=== PATIENT | male | born 1975 | race Caucasian/White ===

== ENCOUNTER 2018-01-12 17:01 | Inpatient (IN) ==
--- NOTE | 2018-01-12 17:27 | ED ---
HPI General Chief complaint: Psychiatric Symptoms Stated complaint: AMS Time Seen by Provider: 01/12/18 17:11 History of Present Illness HPI narrative: Patient comes to the emergency department by EMS after being found altered outside of a [facility]. Patient reportedly lives at [facility] and has a history of schizophrenia with multiple personality disorder. Patient is continuously giggling. Patient states that his he is here because his doctor would not help him and he needs 17 different medications for his multiple personality disorder. Patient denies any chest pain, shortness of breath, abdominal pain, or headaches. Patient reports only drugs he does that are not prescribed is whatever is in cigarettes. Patient is rambling going from one subject to another and constantly giggling. Patient appears poor historian thus limiting H&P. Related Data Home Medications Medication Instructions Recorded Confirmed Unable to Obtain Home Meds 01/12/18 01/12/18 Allergies Allergy/AdvReac Type Severity Reaction Status Date / Time clozapine Allergy Severe Irritation Verified 01/12/18 18:33 ziprasidone Allergy Severe Rash Verified 01/12/18 18:33 *MDRO Multi-Drug Resistant AdvReac Unknown Anxiety Uncoded 01/12/18 18:33 Organism Review of Systems ROS: all other systems reviewed are negative [facility] Medical History Medical History Acute exacerbation of chronic schizophrenia (Acute) Social History Social History Smoking Status: Unknown if ever smoked How Often Do You Have a Drink Containing Alcohol: Unable to Obtain Recent Travel in [facility] within the Last 8 Weeks: No Recent Out of Country Travel within the Last 8 Weeks: No Immunization History Tetanus Immunization: Unable to Assess Exam Narrative Exam Narrative: GENERAL: Well-developed, overly nourished, in no acute distress , and non-ill appearing. SKIN: Focused skin assessment warm and dry. HEAD: Atraumatic. Normocephalic. EYES: Pupils equal and round. EOMI. No scleral icterus. No injection or drainage. ENT: No nasal bleeding or discharge. Mucous membranes pink and moist. NECK: Trachea midline. Supple. No nuclear rigidity. CARDIOVASCULAR: Regular rate and rhythm. No murmur appreciated. RESPIRATORY: No accessory muscle use. No respiratory distress. Clear to auscultation. Breath sounds equal bilaterally. GASTROINTESTINAL: Abdomen soft, non-tender, nondistended, and no guarding. Hepatic and splenic margins not palpable. Normal bowel sounds x4. No pulsatile mass. MUSCULOSKELETAL: No obvious deformities. No clubbing. No cyanosis. No edema. Full range of motion. NEUROLOGICAL: Awake and alert. No obvious cranial nerve deficits. Motor grossly within normal limits. Normal speech. PSYCHIATRIC: Constant giggling and rambling speech. Course Initial Documented Vital Signs Temperature 97.3 F L 01/12/18 17:10 Pulse Rate 102 H 01/12/18 17:10 Respiratory Rate 22 01/12/18 17:10 Blood Pressure 155/67 H 01/12/18 17:10 Last Documented Vital Signs Temperature 97.3 F L 01/12/18 17:10 Pulse Rate 102 H 01/12/18 17:10 Respiratory Rate 01/12/18 17:10 Blood Pressure 155/67 H 01/12/18 17:10 Sign Out Sign Out Data: Patient Sign Out occurred on 01/12/18 at 19:34. Patient's care was discussed, and care was transferred from ALLEN Romeo to ALLEN Helm. Sign Out Comment: Patient was signed out to Chance Chiang PA-C pending results. Please see his to documentation final diagnosis and disposition. Last updated by Anibal Romano PA at 01/12/18 18:59 Post-Handoff Eval: 2000: See previous providers notes for complete history of present illness. Patient's lab work and imaging studies have been reviewed. His ammonia is elevated. His troponin is elevated at 0.16. He denies any chest pain, shortness of breath however he is a poor historian. His urine is positive for nitrites, he will be given a dose of Rocephin. At this point in time the plan would be to admit him to hospitalist service, likely for psychiatric consultation as well for what is likely psychosis related to his psychiatric illnesses. Medical Decision Making MDM Narrative Medical decision making narrative: Patient seen and examined. Initial laboratory radiological studies were ordered. Patient was signed out to Chance Chiang PA-C pending results. Please see his to documentation final diagnosis and disposition. Medical Screen Exam Complete: Yes Emergency Medical Condition: Yes Differential Diagnosis Differential Diagnosis: CVA, TIA, intracranial hemorrhage, UTI, substance abuse , mood disorder, metabolic disturbance, dehydration, pneumonia Lab Data Result diagrams: 01/12/18 17:45 01/12/18 17:45 Lab Results 01/12/18 01/12/18 01/12/18 Range/Units 17:45 17:45 17:45 Sodium 138 (136-145) meq/L Potassium 4.0 (3.5-5.1) meq/L Chloride 107 (98-107) meq/L Carbon Dioxide 22.2 (21.0-32.0) meq/L Anion Gap 9 (5-15) meq/L BUN 14 (7-18) mg/dL Creatinine 1.02 (0.60-1.30) mg/dL Estimated GFR 81 L (>89) mL/min Random Glucose 106 (74-106) mg/dL Calcium 8.8 (8.5-10.1) mg/dL Total Bilirubin 0.7 (0.2-1.0) mg/dL AST 83 H (15-37) U/L ALT 79 H (12-78) U/L Alkaline Phosphatase 71 (45-117) U/L Ammonia 52 H (11-32) mcmol/L Total Creatine Kinase 293 Cancelled (39-308) U/L Troponin I 0.16 H (0.02-0.05) ng/mL Total Protein 8.2 (6.4-8.2) g/dL Albumin 3.6 (3.4-5.0) g/dL TSH 1.910 (0.358-3.740) uIU/mL Urine Color (Yellw/Straw) Urine Clarity (Clear) Urine pH (5.0-8.5) Ur Specific Gary (1.002-1.035) Urine Protein (Neg-Trace) mg/dL Urine Glucose (UA) (Negative) mg/dL Urine Ketones (Negative) mg/dL Urine Occult Blood (Negative) Urine Nitrate (Negative) Urine Bilirubin (Negative) Urine Urobilinogen (Less than 2) mg/dL Ur Leukocyte Esterase (Negative) Urine RBC (0-3) /hpf Urine WBC (0-5) /hpf Urine WBC Clumps (None) Ur Squamous Epith Cells (0-5) /hpf Urine Bacteria (None) /hpf Urine Mucus (Occasional) /lpf Micro UA Comment Ur Microscopic Review Urine Culture Comments Salicylates (2.8-20.0) mg/dL Urine Opiates Screen (Neg) Acetaminophen Less than 2.0 L (10.0-30.0) mcg/mL Ur Barbiturates Screen (Neg) Ur Amphetamines Screen (Neg) U Benzodiazepines Scrn (Neg) Urine Cocaine Screen (Neg) U Cannabinoids Screen (Neg) Serum Alcohol Less than 3 (0-5) mg/dL 01/12/18 01/12/18 01/12/18 Range/Units 17:45 17:45 18:10 Sodium (136-145) meq/L Potassium (3.5-5.1) meq/L Chloride (98-107) meq/L Carbon Dioxide (21.0-32.0) meq/L Anion Gap (5-15) meq/L BUN (7-18) mg/dL Creatinine (0.60-1.30) mg/dL Estimated GFR (>89) mL/min Random Glucose (74-106) mg/dL Calcium (8.5-10.1) mg/dL Total Bilirubin (0.2-1.0) mg/dL AST (15-37) U/L ALT (12-78) U/L Alkaline Phosphatase (45-117) U/L Ammonia (11-32) mcmol/L Total Creatine Kinase (39-308) U/L Troponin I (0.02-0.05) ng/mL Total Protein (6.4-8.2) g/dL Albumin (3.4-5.0) g/dL TSH (0.358-3.740) uIU/mL Urine Color (Yellw/Straw) Urine Clarity (Clear) Urine pH (5.0-8.5) Ur Specific Gary (1.002-1.035) Urine Protein (Neg-Trace) mg/dL Urine Glucose (UA) (Negative) mg/dL Urine Ketones (Negative) mg/dL Urine Occult Blood (Negative) Urine Nitrate (Negative) Urine Bilirubin (Negative) Urine Urobilinogen (Less than 2) mg/dL Ur Leukocyte Esterase (Negative) Urine RBC (0-3) /hpf Urine WBC (0-5) /hpf Urine WBC Clumps (None) Ur Squamous Epith Cells (0-5) /hpf Urine Bacteria (None) /hpf Urine Mucus (Occasional) /lpf Micro UA Comment Ur Microscopic Review Urine Culture Comments Salicylates 5.7 (2.8-20.0) mg/dL Urine Opiates Screen Neg (Neg) Acetaminophen Cancelled (10.0-30.0) mcg/mL Ur Barbiturates Screen Neg (Neg) Ur Amphetamines Screen Neg (Neg) U Benzodiazepines Scrn Neg (Neg) Urine Cocaine Screen Neg (Neg) U Cannabinoids Screen Neg (Neg) Serum Alcohol (0-5) mg/dL 01/12/18 Range/Units 18:10 Sodium (136-145) meq/L Potassium (3.5-5.1) meq/L Chloride (98-107) meq/L Carbon Dioxide (21.0-32.0) meq/L Anion Gap (5-15) meq/L BUN (7-18) mg/dL Creatinine (0.60-1.30) mg/dL Estimated GFR (>89) mL/min Random Glucose (74-106) mg/dL Calcium (8.5-10.1) mg/dL Total Bilirubin (0.2-1.0) mg/dL AST (15-37) U/L ALT (12-78) U/L Alkaline Phosphatase (45-117) U/L Ammonia (11-32) mcmol/L Total Creatine Kinase (39-308) U/L Troponin I (0.02-0.05) ng/mL Total Protein (6.4-8.2) g/dL Albumin (3.4-5.0) g/dL TSH (0.358-3.740) uIU/mL Urine Color Ruchi (Yellw/Straw) Urine Clarity Cloudy H (Clear) Urine pH 5.0 (5.0-8.5) Ur Specific Gary 1.028 (1.002-1.035) Urine Protein 100 H (Neg-Trace) mg/dL Urine Glucose (UA) Negative (Negative) mg/dL Urine Ketones Trace (Negative) mg/dL Urine Occult Blood Negative (Negative) Urine Nitrate Positive H (Negative) Urine Bilirubin Negative (Negative) Urine Urobilinogen 4 or greater (Less than 2) mg/dL Ur Leukocyte Esterase Moderate H (Negative) Urine RBC 9 H (0-3) /hpf Urine WBC (0-5) /hpf Urine WBC Clumps Few H (None) Ur Squamous Epith Cells 4 (0-5) /hpf Urine Bacteria Many H (None) /hpf Urine Mucus Few H (Occasional) /lpf Micro UA Comment Culture indicated Ur Microscopic Review Not Reportable Urine Culture Comments Culture indicated Salicylates (2.8-20.0) mg/dL Urine Opiates Screen (Neg) Acetaminophen (10.0-30.0) mcg/mL Ur Barbiturates Screen (Neg) Ur Amphetamines Screen (Neg) U Benzodiazepines Scrn (Neg) Urine Cocaine Screen (Neg) U Cannabinoids Screen (Neg) Serum Alcohol (0-5) mg/dL Imaging Data Radiologist's impression: Chest X-Ray 01/12/18 17:19 CONCLUSION: Marked compensated cardiomegaly without overt congestive failure. Findings are stable from 03/03/2015. Head CT 01/12/18 17:19 CONCLUSION: No acute intracranial findings. . Discharge Plan Discharge Disposition Patient Disposition: 30 Still Patient Discharge Condition Condition: Stable Discharge Details Diagnosis: Psychosis, Elevated troponin, Acute UTI, Hyperammonemia Physicians Team ED Provider: Brandyn Lopez ED Midlevel Provider: Freddie Chiang Primary Care Provider: UNKNOWN, Rxs /Orders / Referrals /Forms Prescriptions: No Action Unable to Obtain Home Meds RF: 0 Status ED Status: With Doctor
--- NOTE | 2018-01-12 17:56 | CT ---
EXAM DATE: 01/12/2018 5:49 PM EDT AGE/SEX: 42 years / Male INDICATIONS: Altered mental status. CLINICAL DATA: This is the patient's initial encounter. Patient reports that signs and symptoms have been present for 1 day and indicates a pain score of 0/10. MEDICAL/SURGICAL HISTORY: . Schizophrenic, multi personality disorder. None. RADIATION DOSE: 42.05 CTDI (mGy) COMPARISON: No prior exams available for comparison. TECHNIQUE: CT of the head without contrast. Using automated exposure control and adjustment of the mA and/or kV according to patient size, radiation dose was kept as low as reasonably achievable to ob tain optimal diagnostic quality images. DICOM format image data is available electronically for revi ew and comparison. FINDINGS: Cerebrum: The ventricles are normal for age. No evidence of midline shift, mass lesion, hemorrhage or acute infarction. No extraaxial fluid collections are seen. Posterior Fossa: The cerebellum and brainstem are intact. The 4th ventricle is midline. The cerebe llopontine angle is unremarkable. Extracranial: The visualized portion of the orbits is intact. Skull: The calvaria is intact. No evidence of skull fracture. CONCLUSION: No acute intracranial findings. . Electronically signed by: Joseluis Bailey MD 01/12/2018 5:54 PM EDT
--- NOTE | 2018-01-12 18:00 | XR ---
EXAM DATE: 01/12/2018 5:52 PM EDT AGE/SEX: 42 years / Male INDICATIONS: Shortness of breath CLINICAL DATA: This is the patient's initial encounter. Patient reports that signs and symptoms have been present for 1 day and indicates a pain score of 0/10. MEDICAL/SURGICAL HISTORY: None. None. COMPARISON: [facility] [place]ST PA & LAT, 03/03/2015. . FINDINGS: The heart is enlarged. There is no overt congestive failure. There is no alveolar consolidation, pleu ral effusion or pneumothorax. The portion of the bony skeleton visualized is unremarkable. CONCLUSION: Marked compensated cardiomegaly without overt congestive failure. Findings are stable from 03/03/2015 . Electronically signed by: Nolan Deutsch MD 01/12/2018 5:59 PM EDT
[2018-01-12 18:40] LABS: Alanine Aminotransferase 79 U/L (12-78)
[2018-01-12 18:42] LABS: Albumin 3.6 g/dL (3.4-5.0); Anion Gap 9 meq/L (5-15); Aspartate Aminotransferase 83 U/L (15-37); Blood Urea Nitrogen 14 mg/dL (7-18); Calcium 8.8 mg/dL (8.5-10.1); Carbon Dioxide 22.2 meq/L (21.0-32.0); Chloride 107 meq/L (98-107); Glomerular Filtration Rate 81 mL/min (>89); Glucose,Random 106 mg/dL (74-106); Sodium 138 meq/L (136-145)
[2018-01-12 18:55] LABS: Alkaline Phosphatase 71 U/L (45-117); Creatine Kinase 293 U/L (39-308); Total Protein 8.2 g/dL (6.4-8.2); Troponin I 0.16 ng/mL (0.02-0.05)
[2018-01-12 19:26] LABS: Bacteria,Urine Many /hpf; Bilirubin,Urine Negative (Negative); Clarity,Urine Cloudy (Clear); Color,Urine Amber (Yellw/Straw); Glucose,Urine (UA) Negative (Negative); Leukocyte Esterase,Urine Moderate (Negative); Mucus,Urine Few /lpf (Occasional); Nitrite,Urine Positive (Negative); Specific Gravity,Urine 1.028 (1.002-1.035); Squamous Epithelial Cell,Urine 4 /hpf (0-5); Urobilinogen,Urine 4 or Greater mg/dL (Less than 2)
[2018-01-12 19:43] LABS: Amphetamine Screen,Urine Neg (Neg); Barbiturate Screen,Urine Neg (Neg); Cannabinoid Screen,Urine Neg (Neg); Cocaine Screen,Urine Neg (Neg)
[2018-01-12 19:52] LABS: Opiate Screen,Urine Neg (Neg)
[2018-01-12 20:52] LABS: Baso % (Auto) 0.3 % (0.0-2.0); Eos % (Auto) 0.6 % (0.0-4.0); Hematocrit 36.9 % (39.0-51.0); Hemoglobin 12.5 gm/dL (13.0-17.0); Lymph # (Auto) 1.2 th/mm3 (1.0-4.8); Lymph % (Auto) 21.1 % (9.0-44.0); Mean Corpuscular HGB Conc 33.7 % (32.0-36.0); Mean Corpuscular Volume 88.8 fL (80.0-100.0); Mean Platelet Volume 8.5 fL (7.0-11.0); Mono # (Auto) 0.6 th/mm3 (0.0-0.9); Mono % (Auto) 10.6 % (0.0-8.0); Neut # (Auto) 3.9 th/mm3 (1.8-7.7); Neut % (Auto) 67.4 % (16.0-70.0); Platelet Count 206 th/mm3 (150-450); Red Blood Count 4.16 mil/mm3 (4.50-5.90); Red Cell Distribution Width 13.6 % (11.6-17.2); White Blood Count 5.8 th/mm3 (4.0-11.0)
[2018-01-12] MEDS ORDERED: Bisacodyl 10 MG Supp RECTAL PRN (21:09)
[2018-01-12] MEDS ORDERED: Acetaminophen 325 MG Tablet PO PRN (21:09)
--- NOTE | 2018-01-12 21:20 | P.HP ---
History of Present Illness Service: [facility] Primary Care Physician: UNKNOWN History of Present Illness: 42-year-old male with a past medical history significant for schizophrenia and multiple personality disorder presents to the emergency department for the evaluation of altered mental status. The patient is unable to provide any meaningful history and sits on the side of his bed giggling and answering questions inappropriately. He cannot tell me where he is, who he is or what year it is. Per emergency department documentation the patient was brought by EMS after being found altered outside of [facility]. The patient reportedly lives at [facility]. He cannot tell me when he last took his medications. He also cannot tell me any medical history or what medications he is on. He is acutely psychotic. He denies any chest pain or shortness of breath. No abdominal pain. No nausea/vomiting/diarrhea. Reports that he is hungry and thirsty. No fever/chills. No lateralizing signs/symptoms. 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 - Medical / Surgical Hx Neg / Unobtainable Surgical History: No Previous Surgery - Medical History Medical History: Medical History (Last Reviewed 01/12/18 @ 17:26 by ALLEN Romeo) Acute exacerbation of chronic schizophrenia - Family History Family History: Family History (Last Updated 01/12/18 @ 21:16 by Mckenzie Zurita MD) Other Family history normal - Tobacco History Smoking Status: Unknown if ever smoked - Alcohol History How Often Do You Have a Drink Containing Alcohol: Unable to Obtain - Travel History Recent Travel in the [place] Within the Last 8 Weeks: No Recent Travel Out of the Country Within the Last 8 Weeks: No - Immunization History Tetanus Immunization: Unable to Assess Medications and Allergies Active Medications: Active Medications Acetaminophen (Tylenol) 650 mg PO Q4H PRN PRN Reason: Temp > 100.4 Al Hydroxide/Mg Hydroxide (Milk Of Magnesia Liq) 30 ml PO Q12H PRN PRN Reason: Mild Constipation Bisacodyl (Dulcolax Supp) 10 mg RECTAL DAILY PRN PRN Reason: SEVERE CONSITIPATION Ceftriaxone Sodium 1,000 mg/ (Sodium Chloride) 100 mls @ 200 mls/hr IV.SIG Q24H FATEMEH Sodium Chloride (Ns Inj) 1,000 mls @ 100 mls/hr IV.CONT .Q10H FATEMEH Lactulose (Lactulose Liq) 30 ml PO DAILY PRN PRN Reason: SEVERE CONSITIPATION Ondansetron HCl (Zofran Inj) 4 mg IV.PUSH Q6H PRN PRN Reason: NAUSEA OR VOMITING Senna/Docusate Sodium (Jenni-Colace) 1 tab PO BID FATEMEH Sennosides (Senokot) 17.2 mg PO Q12H PRN PRN Reason: Moderate Constipation Sodium Chloride (Ns Flush) 2 ml IV.FLUSH PRN PRN PRN Reason: FLUSH AFTER USING IV ACCESS Allergies Allergy/AdvReac Type Severity Reaction Status Date / Time clozapine Allergy Severe Irritation Verified 01/12/18 18:33 ziprasidone Allergy Severe Rash Verified 01/12/18 18:33 *MDRO Multi-Drug Resistant AdvReac Unknown Anxiety Uncoded 01/12/18 18:33 Organism Home Medications Medication Instructions Recorded Confirmed Type Unable to Obtain Home Meds 01/12/18 01/12/18 History Exam Vital signs: Vital Signs 01/12/18 17:10 Temperature 97.3 F L Pulse Rate 102 H Respiratory Rate 22 Blood Pressure 155/67 H Intake & Output 01/12/18 01/12/18 01/13/18 06:59 18:59 06:59 Weight 69 kg Narrative: Gen.: No acute distress Head: Normocephalic. Atraumatic. EENT: Pupils equal round and reactive to light. Nose without drainage. Airway intact. Throat without injection. Cardiovascular: Regular rate and rhythm. No murmurs, rubs or gallops. Respiratory: Lungs clear to auscultation bilaterally. No wheezes or rhonchi. Abdomen: Soft, nontender, nondistended. No peritoneal signs. Musculoskeletal: No gross deformities. No edema. Skin: No obvious rashes or erythema. Neuro: Sensory and motor grossly intact. Cranial nerves II through XII grossly intact. Psych: Patient is not oriented to person, place or time. He answers questions inappropriately. He is rocking back and forth and constantly giggling. Results - Labs CBC & Chem 7: 01/12/18 20:25 01/12/18 17:45 Labs: Laboratory Results - last 24 hr 01/12/18 01/12/18 01/12/18 17:45 17:45 17:45 WBC RBC Hgb Hct MCV MCH MCHC RDW Plt Count MPV Neut % (Auto) Lymph % (Auto) Gregory % (Auto) Eos % (Auto) Baso % (Auto) Neut # (Auto) Lymph # (Auto) Gregory # (Auto) Eos # (Auto) Baso # (Auto) WBC Differential Differential Comment Sodium 138 Potassium 4.0 Chloride 107 Carbon Dioxide 22.2 Anion Gap 9 BUN 14 Creatinine 1.02 Estimated GFR 81 L Random Glucose 106 Calcium 8.8 Total Bilirubin 0.7 AST 83 H ALT 79 H Alkaline Phosphatase 71 Ammonia 52 H Total Creatine Kinase 293 Cancelled Troponin I 0.16 H Total Protein 8.2 Albumin 3.6 TSH 1.910 Urine Color Urine Clarity Urine pH Ur Specific [place] Urine Protein Urine Glucose (UA) Urine Ketones Urine Occult Blood Urine Nitrate Urine Bilirubin Urine Urobilinogen Ur Leukocyte Esterase Urine RBC Urine WBC Urine WBC Clumps Ur Squamous Epith Cells Urine Bacteria Urine Mucus Micro UA Comment Ur Microscopic Review Urine Culture Comments Salicylates Urine Opiates Screen Acetaminophen Less than 2.0 L Ur Barbiturates Screen Ur Amphetamines Screen U Benzodiazepines Scrn Urine Cocaine Screen U Cannabinoids Screen Serum Alcohol Less than 3 01/12/18 01/12/18 01/12/18 17:45 17:45 18:10 WBC RBC Hgb Hct MCV MCH MCHC RDW Plt Count MPV Neut % (Auto) Lymph % (Auto) Gregory % (Auto) Eos % (Auto) Baso % (Auto) Neut # (Auto) Lymph # (Auto) Gregory # (Auto) Eos # (Auto) Baso # (Auto) WBC Differential Differential Comment Sodium Potassium Chloride Carbon Dioxide Anion Gap BUN Creatinine Estimated GFR Random Glucose Calcium Total Bilirubin AST ALT Alkaline Phosphatase Ammonia Total Creatine Kinase Troponin I Total Protein Albumin TSH Urine Color Urine Clarity Urine pH Ur Specific [place] Urine Protein Urine Glucose (UA) Urine Ketones Urine Occult Blood Urine Nitrate Urine Bilirubin Urine Urobilinogen Ur Leukocyte Esterase Urine RBC Urine WBC Urine WBC Clumps Ur Squamous Epith Cells Urine Bacteria Urine Mucus Micro UA Comment Ur Microscopic Review Urine Culture Comments Salicylates 5.7 Urine Opiates Screen Neg Acetaminophen Cancelled Ur Barbiturates Screen Neg Ur Amphetamines Screen Neg U Benzodiazepines Scrn Neg Urine Cocaine Screen Neg U Cannabinoids Screen Neg Serum Alcohol 01/12/18 01/12/18 18:10 20:25 WBC 5.8 RBC 4.16 L Hgb 12.5 L Hct 36.9 L MCV 88.8 MCH 30.0 MCHC 33.7 RDW 13.6 Plt Count 206 MPV 8.5 Neut % (Auto) 67.4 Lymph % (Auto) 21.1 Gregory % (Auto) 10.6 H Eos % (Auto) 0.6 Baso % (Auto) 0.3 Neut # (Auto) 3.9 Lymph # (Auto) 1.2 Gregory # (Auto) 0.6 Eos # (Auto) 0.0 Baso # (Auto) 0.0 WBC Differential . Differential Comment Auto diff final Sodium Potassium Chloride Carbon Dioxide Anion Gap BUN Creatinine Estimated GFR Random Glucose Calcium Total Bilirubin AST ALT Alkaline Phosphatase Ammonia Total Creatine Kinase Troponin I Total Protein Albumin TSH Urine Color Ruchi Urine Clarity Cloudy H Urine pH 5.0 Ur Specific [place] 1.028 Urine Protein 100 H Urine Glucose (UA) Negative Urine Ketones Trace Urine Occult Blood Negative Urine Nitrate Positive H Urine Bilirubin Negative Urine Urobilinogen 4 or greater Ur Leukocyte Esterase Moderate H Urine RBC 9 H Urine WBC Urine WBC Clumps Few H Ur Squamous Epith Cells 4 Urine Bacteria Many H Urine Mucus Few H Micro UA Comment Culture indicated Ur Microscopic Review Not Reportable Urine Culture Comments Culture indicated Salicylates Urine Opiates Screen Acetaminophen Ur Barbiturates Screen Ur Amphetamines Screen U Benzodiazepines Scrn Urine Cocaine Screen U Cannabinoids Screen Serum Alcohol - Imaging Impressions Chest X-Ray 01/12/18 17:19 CONCLUSION: Marked compensated cardiomegaly without overt congestive failure. Findings are stable from 03/03/2015. Head CT 01/12/18 17:19 CONCLUSION: No acute intracranial findings. . Caprini VTE Risk Assessment Caprini VTE Risk Assessment: No/Low Risk (score <= 1) Caprini Risk Assessment Model: Point Value = 1 Point Value = 2 Point Value = 3 Point Value = 5 Age 41-60 Minor surgery BMI > 25 kg/m2 Swollen legs Varicose veins or History of unexplained or recurrent spontaneous Oral contraceptives or hormone replacement Sepsis (< 1 month) Serious lung disease, including pneumonia (< 1 month) Abnormal pulmonary function Acute myocardial infarction Congestive heart failure (< 1 month) History of inflammatory bowel disease Medical patient at bed rest Age 61-74 Arthroscopic surgery Major open surgery (> 45 min) Laparoscopic surgery (> 45 min) Malignancy Confined to bed (> 72 hours) Immobilizing plaster cast Central venous access Age >= 75 History of VTE Family history of VTE Factor V Leiden Prothrombin [id number] Lupus anticoagulant Anticardiolipin antibodies Elevated serum homocysteine Heparin-induced thrombocytopenia Other congenital or acquired thrombophilia Stroke (< 1 month) Elective arthroplasty Hip, pelvis, or leg fracture Acute spinal cord injury (< 1 month) Prophylaxis Regimen: Total Risk Factor Score Risk Level Prophylaxis Regimen 0-1 Low Early ambulation 2 Moderate Order ONE of the following: *Sequential Compression Device (SCD) *Heparin 5000 units SQ BID 3-4 Higher Order ONE of the following medications: *Heparin 5000 units SQ TID *Enoxaparin/Lovenox 40 mg SQ daily (WT < 150 kg, CrCl > 30 mL/min) *Enoxaparin/Lovenox 30 mg SQ daily (WT < 150 kg, CrCl > 10-29 mL/min) *Enoxaparin/Lovenox 30 mg SQ BID (WT < 150 kg, CrCl > 30 mL/min) AND/OR *Sequential Compression Device (SCD) 5 or more Highest Order ONE of the following medications: *Heparin 5000 units SQ TID (Preferred with Epidurals) *Enoxaparin/Lovenox 40 mg SQ daily (WT < 150 kg, CrCl > 30 mL/min) *Enoxaparin/Lovenox 30 mg SQ daily (WT < 150 kg, CrCl > 10-29 mL/min) *Enoxaparin/Lovenox 30 mg SQ BID (WT < 150 kg, CrCl > 30 mL/min) AND *Sequential Compression Device (SCD) Assessment and Plan - Plan Assessment/plan: 1. Acute psychosis Patient with previous diagnosis of schizophrenia and multiple personality disorder Contacting patient's assisted living facility for past medical history and current medication list Unclear when patient last took his home medications Psychiatry consulted, appreciate assistance Patient under [place] act at this time 2. Elevated troponin Troponin 0.16 EEG without signs of ischemia, personally reviewed ACS rule out pending; serial troponins/EKGs Patient denies any chest pain or shortness of breath 3. Urinary tract infection UA consistent with UTI Urine culture pending Rocephin 4. Schizophrenia Psychiatry consulted as above Medication list requested as above FEN N.p.o. Electrolytes: Monitor and replete as needed NS at 100 cc/hour
[2018-01-12] MEDS: Sod Chloride 0.9% Inj 1,000 ML IV.CONT SCH (22:13)
[2018-01-13 00:18] LABS: Troponin I 0.24 ng/mL (0.02-0.05)
[2018-01-13] MEDS: Metoprolol Tartrate 100 MG Tablet PO SCH ×3 (01:23→21:30)
[2018-01-13] MEDS: traZODone 50 MG Tablet PO SCH ×2 (01:23→21:29)
--- NOTE | 2018-01-13 08:41 | P.PNIM ---
Subjective Interval history: in no acute distress. however is a poor historian. d/w the RN and no acute issues over night. Physical Exam Vital signs: Vital Signs 01/12/18 17:10 01/13/18 00:25 01/13/18 06:01 Temperature 97.3 F L Pulse Rate 102 H 88 72 Respiratory Rate 22 18 16 Blood Pressure 155/67 H 150/80 H 125/76 Pulse Oximetry 97 01/13/18 08:12 Temperature Pulse Rate Respiratory Rate Blood Pressure Pulse Oximetry 98 Intake & Output 01/12/18 01/13/18 01/13/18 18:59 06:59 18:59 Weight 69 kg - Constitutional no acute distress - Routine Respiratory Exam Present: CTA bilaterally - Routine Cardiovascular Exam Present: RRR - Routine Abdominal Exam Present: soft - Routine Extremities Exam Comments: no pedal edema. - Routine Neurological Exam Present: alert, oriented X3 Results - Labs CBC & Chem 7: 01/12/18 20:25 01/12/18 17:45 Laboratory Results - last 24 hr 01/12/18 01/12/18 01/12/18 17:45 17:45 17:45 WBC RBC Hgb Hct MCV MCH MCHC RDW Plt Count MPV Neut % (Auto) Lymph % (Auto) [place] % (Auto) Eos % (Auto) Baso % (Auto) Neut # (Auto) Lymph # (Auto) [place] # (Auto) Eos # (Auto) Baso # (Auto) WBC Differential Differential Comment Sodium 138 Potassium 4.0 Chloride 107 Carbon Dioxide 22.2 Anion Gap 9 BUN 14 Creatinine 1.02 Estimated GFR 81 L Random Glucose 106 Calcium 8.8 Total Bilirubin 0.7 AST 83 H ALT 79 H Alkaline Phosphatase 71 Ammonia 52 H Total Creatine Kinase 293 Cancelled Troponin I 0.16 H Total Protein 8.2 Albumin 3.6 TSH 1.910 Urine Color Urine Clarity Urine pH Ur Specific [place] Urine Protein Urine Glucose (UA) Urine Ketones Urine Occult Blood Urine Nitrate Urine Bilirubin Urine Urobilinogen Ur Leukocyte Esterase Urine RBC Urine WBC Urine WBC Clumps Ur Squamous Epith Cells Urine Bacteria Urine Mucus Micro UA Comment Ur Microscopic Review Urine Culture Comments Salicylates Urine Opiates Screen Acetaminophen Less than 2.0 L Ur Barbiturates Screen Ur Amphetamines Screen U Benzodiazepines Scrn Urine Cocaine Screen U Cannabinoids Screen Serum Alcohol Less than 3 01/12/18 01/12/18 01/12/18 17:45 17:45 18:10 WBC RBC Hgb Hct MCV MCH MCHC RDW Plt Count MPV Neut % (Auto) Lymph % (Auto) [place] % (Auto) Eos % (Auto) Baso % (Auto) Neut # (Auto) Lymph # (Auto) [place] # (Auto) Eos # (Auto) Baso # (Auto) WBC Differential Differential Comment Sodium Potassium Chloride Carbon Dioxide Anion Gap BUN Creatinine Estimated GFR Random Glucose Calcium Total Bilirubin AST ALT Alkaline Phosphatase Ammonia Total Creatine Kinase Troponin I Total Protein Albumin TSH Urine Color Urine Clarity Urine pH Ur Specific [place] Urine Protein Urine Glucose (UA) Urine Ketones Urine Occult Blood Urine Nitrate Urine Bilirubin Urine Urobilinogen Ur Leukocyte Esterase Urine RBC Urine WBC Urine WBC Clumps Ur Squamous Epith Cells Urine Bacteria Urine Mucus Micro UA Comment Ur Microscopic Review Urine Culture Comments Salicylates 5.7 Urine Opiates Screen Neg Acetaminophen Cancelled Ur Barbiturates Screen Neg Ur Amphetamines Screen Neg U Benzodiazepines Scrn Neg Urine Cocaine Screen Neg U Cannabinoids Screen Neg Serum Alcohol 01/12/18 01/12/18 01/12/18 18:10 20:25 23:00 WBC 5.8 RBC 4.16 L Hgb 12.5 L Hct 36.9 L MCV 88.8 MCH 30.0 MCHC 33.7 RDW 13.6 Plt Count 206 MPV 8.5 Neut % (Auto) 67.4 Lymph % (Auto) 21.1 [place] % (Auto) 10.6 H Eos % (Auto) 0.6 Baso % (Auto) 0.3 Neut # (Auto) 3.9 Lymph # (Auto) 1.2 [place] # (Auto) 0.6 Eos # (Auto) 0.0 Baso # (Auto) 0.0 WBC Differential . Differential Comment Auto diff final Sodium Potassium Chloride Carbon Dioxide Anion Gap BUN Creatinine Estimated GFR Random Glucose Calcium Total Bilirubin AST ALT Alkaline Phosphatase Ammonia Total Creatine Kinase 225 Troponin I 0.24 H Total Protein Albumin TSH Urine Color [place] Urine Clarity Cloudy H Urine pH 5.0 Ur Specific [place] 1.028 Urine Protein 100 H Urine Glucose (UA) Negative Urine Ketones Trace Urine Occult Blood Negative Urine Nitrate Positive H Urine Bilirubin Negative Urine Urobilinogen 4 or greater Ur Leukocyte Esterase Moderate H Urine RBC 9 H Urine WBC Urine WBC Clumps Few H Ur Squamous Epith Cells 4 Urine Bacteria Many H Urine Mucus Few H Micro UA Comment Culture indicated Ur Microscopic Review Not Reportable Urine Culture Comments Culture indicated Salicylates Urine Opiates Screen Acetaminophen Ur Barbiturates Screen Ur Amphetamines Screen U Benzodiazepines Scrn Urine Cocaine Screen U Cannabinoids Screen Serum Alcohol - Imaging Impressions Chest X-Ray 01/12/18 17:19 CONCLUSION: Marked compensated cardiomegaly without overt congestive failure. Findings are stable from 03/03/2015. Head CT 01/12/18 17:19 CONCLUSION: No acute intracranial findings. . Assessment and Plan - Plan 1. Acute psychosis Patient with previous diagnosis of schizophrenia and multiple personality disorder Contacting patient's assisted living facility for past medical history and current medication list Unclear when patient last took his home medications Psychiatry consulted, appreciate assistance Patient under Alcocer act at this time 2. Elevated troponin EKG's; NSR with no acute ST-T changes. will follow the serial troponin. continue aspirin. Patient denies any chest pain or shortness of breath 3. Urinary tract infection UA consistent with UTI Urine culture pending Rocephin 4. Schizophrenia Psychiatry consulted as above Medication list requested as above Discharge Planning: awaiting psych evaluation.
[2018-01-13] MEDS ORDERED: Non-Formulary Drug (Bumetanide [Bumetanide] 2 MG) PO SCH (09:00)
[2018-01-13 09:05] LABS: Anion Gap 10 meq/L (5-15); Blood Urea Nitrogen 12 mg/dL (7-18); Calcium 8.8 mg/dL (8.5-10.1); Carbon Dioxide 23.4 meq/L (21.0-32.0); Chloride 105 meq/L (98-107); Glomerular Filtration Rate Greater Than 89 mL/min (>89); Glucose,Random 87 mg/dL (74-106); Potassium 3.5 meq/L (3.5-5.1); Sodium 138 meq/L (136-145)
[2018-01-13 09:09] LABS: Creatine Kinase 191 U/L (39-308); Troponin I 0.19 ng/mL (0.02-0.05)
[2018-01-13 10:58] LABS: Hematocrit 35.9 % (39.0-51.0); Hemoglobin 12.4 gm/dL (13.0-17.0); Mean Corpuscular HGB Conc 34.5 % (32.0-36.0); Mean Corpuscular Hemoglobin 30.2 pg (27.0-34.0); Mean Corpuscular Volume 87.5 fL (80.0-100.0); Mean Platelet Volume 8.4 fL (7.0-11.0); Platelet Count 202 th/mm3 (150-450); Red Blood Count 4.11 mil/mm3 (4.50-5.90); Red Cell Distribution Width 13.4 % (11.6-17.2); White Blood Count 5.1 th/mm3 (4.0-11.0)
[2018-01-13 11:48] LABS: Eosinophils 2 % (0-4); Lymphocytes 37 % (9-44); Monocytes 15 % (0-8)
[2018-01-13 11:50] LABS: Platelet Estimate Normal (Normal); Platelet Morphology Normal (Normal); RBC Morphology Normal (Normal)
--- NOTE | 2018-01-13 12:33 | P.CONPSY ---
Provisional Diagnosis Admission Date: January 12, 2018 21:09 Bradley I.: Schizophrenia History of Present Illness Service: Medicine Primary Care Provider: UNKNOWN History of Present Illness: The patient is a 42-year-old man, single, unemployed, domiciled in [facility], with an extensive psychiatric history of schizophrenia, multiple psychiatric hospitalizations, but the last hospitalization was about 6 years ago , he follows up with fact team in [facility], he is on trazodone 100 mg at bedtime, Oxcarbazepine 600 mg 3 times daily, Seroquel 600 mg at bedtime, benztropine 1 mg twice daily, Invega Sustenna 156 mg monthly, unknown date of last dose, who presents to the emergency department on the act for the evaluation of altered mental status. The patient is under observation in the medical ER due to elevated troponin, UTI. Consulted to psychiatry for evaluation. EMR reviewed. Collateral information from [facility] was obtained. They described the patient is a very polite and calm patient, compliant with his medications, usually not problematic, but for the last week he has been acting out of character, quite agitated, disorganized, not making sense, and in the last 2 days even aggressive. On my psychiatric evaluation today the patient is calm, but poorly cooperative. The patient is very disorganized and tangential, the patient is unable to provide any meaningful history and sits on the side of his bed giggling and answering questions inappropriately. She is just partially oriented, he knows he is in the hospital, but he does not know the date and he does not know who is the president. The patient reports that he has been hearing the voices of treatment talking to him, usually telling him to take his medications. He seems to be quite internally preoccupied and paranoid. He denies the use of alcohol and illegal drugs. Review of Systems Constitutional: Denies anorexia, Denies body ache(s), Denies chills, Denies daytime sleepiness, Denies excessive sweating, Denies fatigue, Denies fever(s), Denies headache(s), Denies increased appetite, Denies lack of energy, Denies malaise, Denies night sweats, Denies weakness, Denies weight gain, Denies weight loss, Denies other Eyes: Denies blind spots, Denies blurry vision, Denies bulging eyes, Denies change in vision, Denies double vision, Denies discharge, Denies dry eyes, Denies floaters, Denies irritation, Denies itchy eyes, Denies loss of vision, Denies pain, Denies requires corrective lenses, Denies sensitivity to light, Denies other Ears, Nose, Mouth, and Throat: Denies abnormal hearing, Denies bleeding gums, Denies bad breath, Denies change in voice, Denies dental pain, Denies difficulty swallowing, Denies dizziness, Denies dry mouth, Denies ear discharge , Denies ear pain, Denies facial pain, Denies headache(s), Denies hearing loss, Denies hoarseness, Denies lip swelling, Denies nosebleed, Denies mouth lesions, Denies mouth pain, Denies nasal congestion, Denies nasal discharge, Denies nasal obstruction, Denies nasal trauma, Denies neck lump, Denies neck pain, Denies nose pain, Denies pain with swallowing, Denies poor balance, Denies post nasal drip, Denies ringing in the ears, Denies sinus pain, Denies sinus pressure , Denies sore throat, Denies throat swelling, Denies tongue swelling, Denies other Cardiovascular: Denies chest pain, Denies chest pain at rest, Denies chest pain with activity, Denies excessive sweating, Denies fainting, Denies fast heart rate, Denies foot swelling, Denies generalized swelling, Denies irregular heart rhythm, Denies leg pain with activity, Denies leg sores, Denies leg swelling, Denies lightheadedness, Denies radiating jaw, neck or arm pain, Denies rapid, pounding, or irregular heartbeat, Denies shortness of breath, Denies shortness of breath with activity, Denies shortness of breath when lying down, Denies shortness of breath causing sudden awakening, Denies slow heart rate, Denies other Gastrointestinal: Denies abdominal pain, Denies belching, Denies black, tarry stools, Denies bloating, Denies bright, red blood in stools, Denies change in bowel habits, Denies constant urge to pass stool, Denies change in stools, Denies coffee ground vomit, Denies constipation, Denies cramping, Denies difficulty swallowing, Denies excessive passing of gas, Denies feeling full early, Denies heartburn, Denies incontinent of stools, Denies loose stools, Denies nausea, Denies pain with swallowing, Denies vomiting, Denies vomiting blood, Denies other Genitourinary: Denies blood in semen, Denies blood in urine, Denies decreased urination, Denies difficulty urinating, Denies difficulty with ejaculations, Denies erectile dysfunction, Denies genital lesions, Denies genital pain, Denies painful urination, Denies side pain, Denies frequent nighttime urination , Denies painful ejaculations, Denies penile discharge, Denies scrotal swelling , Denies testicle lump, Denies testicle pain, Denies urinary frequency, Denies urinary hesitancy, Denies urinary incontinence, Denies urinary urgency, Denies other Musculoskeletal: Denies abnormal walking, Denies back pain, Denies body aches, Denies decreased muscle mass, Denies deformity, Denies joint pain, Denies joint swelling, Denies limited joint movement, Denies loss of height, Denies muscle cramps, Denies muscle weakness, Denies neck pain, Denies numbness, Denies radiating pain into limb, Denies stiffness, Denies tingling, Denies other Skin/Breast: Denies acne, Denies bleeding lesions, Denies boil, Denies breast swelling, Denies breast skin changes, Denies breast pain, Denies breast lump, Denies change in breast shape, Denies change in hair, Denies change in skin color, Denies changing lesions, Denies dry skin, Denies excessive hair growth, Denies hair loss, Denies itching, Denies lesions, Denies nail changes, Denies new lesions, Denies nipple discharge, Denies non-healing lesions, Denies redness , Denies sensitivity to light, Denies rash, Denies skin pain, Denies skin ulcer , Denies sores, Denies stretch brock, Denies unusual bruising, Denies wounds, Denies yellowing of the skin, Denies other Neurologic: Denies abnormal hearing, Denies abnormal movements, Denies abnormal speech, Denies abnormal walking, Denies behavioral changes, Denies burning sensations, Denies confusion, Denies dizziness, Denies fainting, Denies frequent falls, Denies headache(s), Denies lack of coordination, Denies localized weakness, Denies loss of vision, Denies memory loss, Denies numbness, Denies other visual disturbances, Denies radiating pain, Denies restless legs, Denies convulsions, Denies seizure-like activity, Denies sensory deficit, Denies tingling, Denies tingling/numbness/burning sensations, Denies tremor(s), Denies unsteadiness, Denies weakness, Denies other Psychiatric: Reports confusion, Reports hearing things others do not hear, Reports irritability [facility] - History History Provided By: Circle Edger / EMT - Medical History Medical History: Medical History (Last Reviewed 01/12/18 @ 17:26 by ALLEN Romeo) Acute exacerbation of chronic schizophrenia - Family History Family History: Family History (Last Updated 01/12/18 @ 21:16 by Mckenzie Zurita MD) Other Family history normal - Tobacco History Smoking Status: Unknown if ever smoked - Alcohol History How Often Do You Have a Drink Containing Alcohol: Unable to Obtain - Travel History Recent Travel in the [facility] Within the Last 8 Weeks: No Recent Travel Out of the Country Within the Last 8 Weeks: No - Immunization History Tetanus Immunization: Unable to Assess Medications and Allergies Active Medications: Active Medications Acetaminophen (Tylenol) 650 mg PO Q4H PRN PRN Reason: Temp > 100.4 Al Hydroxide/Mg Hydroxide (Milk Of Magnesia Liq) 30 ml PO Q12H PRN PRN Reason: Mild Constipation Aspirin (Ecotrin) 81 mg PO DAILY [facility] Benztropine Mesylate (Cogentin) 1 mg PO DAILY [facility] Bisacodyl (Dulcolax Supp) 10 mg RECTAL DAILY PRN PRN Reason: SEVERE CONSITIPATION Bumetanide (Bumex) 2 mg PO DAILY [facility] Fenofibrate (Tricor) 145 mg PO DAILY [facility] Ceftriaxone Sodium 1,000 mg/ (Sodium Chloride) 100 mls @ 200 mls/hr IV.SIG Q24H [facility] Sodium Chloride (Ns Inj) 1,000 mls @ 100 mls/hr IV.CONT .Q10H [facility] Last Admin: 01/12/18 22:13 Dose: 100 mls/hr Lactulose (Lactulose Liq) 30 ml PO DAILY PRN PRN Reason: SEVERE CONSITIPATION Metoprolol Tartrate (Lopressor) 100 mg PO BID [facility] Last Admin: 01/13/18 01:23 Dose: 100 mg Ondansetron HCl (Zofran Inj) 4 mg IV.PUSH Q6H PRN PRN Reason: NAUSEA OR VOMITING Oxcarbazepine (Trileptal) 600 mg PO BID [facility] Pantoprazole Sodium (Protonix) 20 mg PO DAILY [facility] Quetiapine Fumarate (Seroquel) 600 mg PO HS [facility] Last Admin: 01/13/18 01:24 Dose: 600 mg Senna/Docusate Sodium (Jenni-Colace) 1 tab PO BID [facility] Sennosides (Senokot) 17.2 mg PO Q12H PRN PRN Reason: Moderate Constipation Sodium Chloride (Ns Flush) 2 ml IV.FLUSH PRN PRN PRN Reason: FLUSH AFTER USING IV ACCESS Trazodone HCl (Desyrel) 150 mg PO [facility] Last Admin: 01/13/18 01:23 Dose: 150 mg Allergies Allergy/AdvReac Type Severity Reaction Status Date / Time clozapine Allergy Severe Irritation Verified 01/12/18 18:33 ziprasidone Allergy Severe Rash Verified 01/12/18 18:33 lithium Allergy Rash Verified 01/13/18 00:00 *MDRO Multi-Drug Resistant AdvReac Unknown Anxiety Uncoded 01/12/18 18:33 Organism Home Medications Medication Instructions Recorded Confirmed Type benztropine 1 mg PO DAILY 01/13/18 01/13/18 History bumetanide 2 mg PO DAILY 01/13/18 01/13/18 History ciprofloxacin HCl 500 mg PO BID 01/13/18 01/13/18 History doxycycline hyclate 100 mg PO BID 01/13/18 01/13/18 History fenofibrate nanocrystallized 145 mg PO DAILY 01/13/18 01/13/18 History loratadine 10 mg PO DAILY 01/13/18 01/13/18 History metoprolol tartrate 100 mg PO BID 01/13/18 01/13/18 History naproxen 500 mg PO BID PRN 01/13/18 01/13/18 History nitrofurantoin monohyd/m-cryst 100 mg PO BID 01/13/18 01/13/18 History omeprazole 20 mg PO DAILY 01/13/18 01/13/18 History oxcarbazepine 600 mg PO BID 01/13/18 01/13/18 History paliperidone palmitate [Invega 156 mg IM QMONTH 01/13/18 01/13/18 History Sustenna] phenazopyridine 200 mg PO TID 01/13/18 01/13/18 History potassium 10 meq PO DAILY 01/13/18 01/13/18 History quetiapine 600 mg PO QPM 01/13/18 01/13/18 History trazodone 150 mg PO DAILY 01/13/18 01/13/18 History Exam Vital signs: Vital Signs 01/12/18 17:10 01/13/18 00:25 01/13/18 06:01 Temperature 97.3 F L Pulse Rate 102 H 88 72 Respiratory Rate 16 Blood Pressure 155/67 H 150/80 H 125/76 Pulse Oximetry 97 01/13/18 08:12 Temperature Pulse Rate Respiratory Rate Blood Pressure Pulse Oximetry 98 Intake & Output 01/12/18 01/13/18 01/13/18 18:59 06:59 18:59 Weight 69 kg Mental Status Examination Appearance: Dirty, Disheveled, Other (Obese) Consciousness: Alert Orientation: x4 Motor Activity: Normal gait Speech: Unremarkable Language: Adequate Fund of Knowledge: Adequate Attention and Concentration: Adequate Memory: Unremarkable Mood: Appropriate Affect: Appropriate Thought Process & Associations: Loose associations, Disorganized Thought Content: Bizarre thinking, Preoccupations Hallucination Type: Auditory Delusion Type: Bizarre, Paranoid Suicidal Ideation: No Suicidal Plan: No Suicidal Intention: No Homicidal Ideation: No Homicidal Plan: No Homicidal Intention: No Insight: Poor Judgment: Poor Assessment and Plan - Assessment (1) Schizophrenia Code(s): F20.9 - Schizophrenia, unspecified Status: Acute (2) Schizophrenia Code(s): F20.9 - Schizophrenia, unspecified Status: Acute (3) Schizophrenia Code(s): F20.9 - Schizophrenia, unspecified Status: Acute - Plan Plan: Estimated LOS: [] days On psychiatric evaluation today the patient presents clear features of psychiatric decompensation, the patient is acutely psychotic, with prominent disorganized and tangential speech, bizarre behavior, neologisms, loosening of associations, he also presents just partially oriented, with fluctuation of consciousness and as per staff in [facility] he has being also agitated and aggressive which is out of character for him. There is a patient with a psychiatric history of schizophrenia, multiple psychiatric hospitalizations, last hospitalization was about 6 years ago, he follows up with [facility]. This presentation could be related with a major psychotic illness decompensation, but also delirium related with UTI and potential heart condition must be in the differential. Patient definitely meets criteria for involuntary psychiatric admission given his acute psychosis. I will restart his Seroquel 600 mg at bedtime, oxcarbazepine 600 twice daily, trazodone 100 mg. QTC is 380. I will hold the benztropine to avoid more anticholinergic cognitive impairment at the moment. Communicate with [facility] for collateral and to confirm last does of Invega Sustenna 156 mg. Transfer to psychiatry was medically stable. Justification for Continued Inpatient Stay: Patient is for psychiatric admission.
[2018-01-13] MEDS: Sod Chloride 0.9% Inj 1,000 ML IV.CONT SCH ×2 (12:38→18:43)
[2018-01-13] MEDS: Fenofibrate 145 MG Tablet PO SCH (12:50)
[2018-01-13] MEDS: Pantoprazole Sodium 20 MG DR Tablet PO SCH (12:50)
[2018-01-13] MEDS: Senna/Docusate Sodium 8.6/50 MG Tablet PO SCH ×2 (12:50→21:29)
[2018-01-13] MEDS: OXcarbazepine 300 MG Tablet PO SCH ×2 (12:51→21:30)
--- NOTE | 2018-01-13 13:19 | ECG ---
Date Performed: 01/12/2018 Time Performed: 19:04:05 PTAGE: 42 years EKG: Sinus rhythm NORMAL ECG INTERPRETATION BASED ON A DEFAULT AGE OF 42 YEARS PREVIOUS TRACING : 10/27/2007 08.53 Since the previous tracing, no significant change not ed DOCTOR: Blanco Serna Interpretating Date/Time 01/13/2018 13:19:17
--- NOTE | 2018-01-13 13:21 | ECG ---
Date Performed: 01/12/2018 Time Performed: 22:56:28 PTAGE: 42 years EKG: Sinus rhythm NORMAL ECG PREVIOUS TRACING 01/12/2018 1904 Since the previous tracing, no significant change noted DOCTOR: Blanco Serna Interpretating Date/Time 01/13/2018 13:20:11
[2018-01-14] MEDS: Sod Chloride 0.9% Inj 1,000 ML IV.CONT SCH ×2 (03:12→14:47)
[2018-01-14 08:42] VITALS: BP 129/82; RESP 19; TEMP 98; O2SAT 95
[2018-01-14] MEDS: Senna/Docusate Sodium 8.6/50 MG Tablet PO SCH (08:47)
[2018-01-14] MEDS: Fenofibrate 145 MG Tablet PO SCH (08:47)
[2018-01-14] MEDS: OXcarbazepine 300 MG Tablet PO SCH (08:47)
[2018-01-14] MEDS: Metoprolol Tartrate 100 MG Tablet PO SCH (08:48)
[2018-01-14] MEDS: Pantoprazole Sodium 20 MG DR Tablet PO SCH (08:48)
--- NOTE | 2018-01-14 10:15 | P.PNIM ---
Subjective Interval history: f/u; UTI/ psychosis in no acute distress. looks better today and is more alert. no chest pain or sob. afebrile. Physical Exam Vital signs: Vital Signs 01/13/18 13:00 01/13/18 15:50 01/13/18 16:00 Temperature 98.3 F Pulse Rate 70 70 75 Respiratory Rate 18 17 Blood Pressure 140/82 127/80 Pulse Oximetry 93 L 01/13/18 20:00 01/14/18 00:00 01/14/18 04:00 Temperature 97.8 F 97.1 F L Pulse Rate 80 65 61 Respiratory Rate 18 20 Blood Pressure 139/79 126/69 126/68 Pulse Oximetry 95 94 L 01/14/18 08:00 01/14/18 08:42 Temperature 98.1 F 98 F Pulse Rate 77 71 Respiratory Rate 20 19 Blood Pressure 151/69 H 129/82 Pulse Oximetry 96 95 Intake & Output 01/13/18 01/14/18 01/14/18 18:59 06:59 18:59 Intake Total 1999 1670 / 1670 Balance 1999 1670 / 1670 Weight 69.1 kg Intake: IV 1999 1100 / 1100 NS Inj 1,000 ML @ 100 mls/hr IV 1999 1000 / 1000 .CONT .Q10H [facility] Rx#:[id number] Rocephin Inj 1,000 MG In NS Inj 100 / 100 100 ML @ 200 mls/hr IV.SIG Q24H [facility] Rx#:[id number] Oral 570 / 570 Other: # Voids 3 - Constitutional no acute distress - Routine Respiratory Exam Present: CTA bilaterally - Routine Cardiovascular Exam Present: RRR - Routine Abdominal Exam Present: soft - Routine Extremities Exam Comments: no pedal edema. - Routine Neurological Exam Present: alert Results - Labs CBC & Chem 7: 01/13/18 09:24 01/13/18 07:15 Laboratory Results - last 24 hr 01/12/18 01/13/18 01/13/18 18:10 09:24 20:49 WBC 5.1 RBC 4.11 L Hgb 12.4 L Hct 35.9 L MCV 87.5 MCH 30.2 MCHC 34.5 RDW 13.4 Plt Count 202 MPV 8.4 Prelim Diff (Auto) Manual diff required WBC Differential Manual diff final Seg Neuts % (Manual) 45 Band Neuts % (Manual) 1 Lymphocytes % (Manual) 37 Monocytes % (Manual) 15 H Eosinophils % (Manual) 2 Abs Neuts (Manual) 2.3 Differential Comment . Platelet Estimate Normal Platelet Morphology Normal RBC Morphology Normal POC Glucose 128 H Urine Color Ruchi Urine Clarity Cloudy H Urine pH 5.0 Ur Specific [place] 1.028 Urine Protein 100 H Urine Glucose (UA) Negative Urine Ketones Trace Urine Occult Blood Negative Urine Nitrate Positive H Urine Bilirubin Negative Urine Urobilinogen 4 or greater Ur Leukocyte Esterase Moderate H Urine RBC 9 H Urine WBC Urine WBC Clumps Few H Ur Squamous Epith Cells 4 Urine Bacteria Many H Urine Mucus Few H Micro UA Comment Culture indicated Urine Culture Comments Culture indicated Microbiology 01/12/18 18:10 Clean Catch Urine Urine Culture - Preliminary gram negative rods Assessment and Plan - Plan 1. Acute psychosis Psychiatry consulted, appreciate assistance Patient under [place]cocer act at this time needs psych admission. 2. Elevated troponin Patient denies any chest pain or shortness of breath. EKG's normal. serial troponin stable. reportedly had a negative stress test six months ago. 3. Urinary tract infection UA consistent with UTI Urine culture pending Rocephin; will switch to oral antibiotic. 4. Schizophrenia Psychiatry consulted as above Medication list requested as above Discharge Planning: dc to psych unit today. see med list. UC to be followed. d/w the patient and RN.
--- NOTE | 2018-01-14 10:22 | P.DS ---
Date of admission: 01/12/18 21:09 Primary care physician: UNKNOWN Brief History from admission: 42-year-old male with a past medical history significant for schizophrenia and multiple personality disorder presents to the emergency department for the evaluation of altered mental status. The patient is unable to provide any meaningful history and sits on the side of his bed giggling and answering questions inappropriately. He cannot tell me where he is, who he is or what year it is. Per emergency department documentation the patient was brought by EMS after being found altered outside of [facility]. The patient reportedly lives at [facility]. He cannot tell me when he last took his medications. He also cannot tell me any medical history or what medications he is on. He is acutely psychotic. He denies any chest pain or shortness of breath. No abdominal pain. No nausea/vomiting/diarrhea. Reports that he is hungry and thirsty. No fever/chills. No lateralizing signs/symptoms. DS: Summary Hospital Course: patient was admitted with psychosis and UTI. he was started on IV antibiotic. he was seen by psych who recommended psych admission. he had mildly but stable troponin elevation- but he was chest pain free with normal EKG's. reportedly had a negative stress test six months ago. he will be discharged to the psych unit. - Time Spent with Patient Total time spent providing and/or coordinating discharge services: Less than 30 minutes Exam Vital signs: Vital Signs 01/13/18 13:00 01/13/18 15:50 01/13/18 16:00 Temperature 98.3 F Pulse Rate 70 70 75 Respiratory Rate 18 17 Blood Pressure 140/82 127/80 Pulse Oximetry 93 L 01/13/18 20:00 01/14/18 00:00 01/14/18 04:00 Temperature 97.8 F 97.1 F L Pulse Rate 80 65 61 Respiratory Rate 18 20 Blood Pressure 139/79 126/69 126/68 Pulse Oximetry 95 94 L 01/14/18 08:00 01/14/18 08:42 Temperature 98.1 F 98 F Pulse Rate 77 71 Respiratory Rate 20 19 Blood Pressure 151/69 H 129/82 Pulse Oximetry 96 95 Intake & Output 01/13/18 01/14/18 01/14/18 18:59 06:59 18:59 Intake Total 1999 1670 / 1670 Balance 1999 1670 / 1670 Weight 69.1 kg Intake: IV 1999 / 1999 1100 / 1100 NS Inj 1,000 ML @ 100 mls/hr IV 1999 / 1999 1000 / 1000 .CONT .Q10H FATEMEH Rx#:[id number] Rocephin Inj 1,000 MG In NS Inj 100 / 100 100 ML @ 200 mls/hr IV.SIG Q24H FATEMEH Rx#:[id number] Oral 570 / 570 Other: # Voids 3 - Constitutional no acute distress - Routine Respiratory Exam Present: CTA bilaterally - Routine Cardiovascular Exam Present: RRR - Routine Abdominal Exam Present: soft - Routine Extremities Exam Comments: no pedal edema. - Routine Neurological Exam Present: alert Results Procedures completed during hospitalization: none Labs on day of discharge: Labs from last 24 hours 01/13/18 01/13/18 01/12/18 20:49 09:24 18:10 WBC 5.1 RBC 4.11 L Hgb 12.4 L Hct 35.9 L MCV 87.5 MCH 30.2 MCHC 34.5 RDW 13.4 Plt Count 202 MPV 8.4 Prelim Diff (Auto) Manual diff required WBC Differential Manual diff final Seg Neuts % (Manual) 45 Band Neuts % (Manual) 1 Lymphocytes % (Manual) 37 Monocytes % (Manual) 15 H Eosinophils % (Manual) 2 Abs Neuts (Manual) 2.3 Differential Comment . Platelet Estimate Normal Platelet Morphology Normal RBC Morphology Normal POC Glucose 128 H Urine Color Ruchi Urine Clarity Cloudy H Urine pH 5.0 Ur Specific Crosby 1.028 Urine Protein 100 H Urine Glucose (UA) Negative Urine Ketones Trace Urine Occult Blood Negative Urine Nitrate Positive H Urine Bilirubin Negative Urine Urobilinogen 4 or greater Ur Leukocyte Esterase Moderate H Urine RBC 9 H Urine WBC Urine WBC Clumps Few H Ur Squamous Epith Cells 4 Urine Bacteria Many H Urine Mucus Few H Micro UA Comment Culture indicated Urine Culture Comments Culture indicated Preliminary micro results at discharge 01/12/18 18:10 Urine Culture - Preliminary Clean Catch Urine gram negative rods - Impressions ITS Impressions Chest X-Ray 01/12/18 17:19 CONCLUSION: Marked compensated cardiomegaly without overt congestive failure. Findings are stable from 03/03/2015. Head CT 01/12/18 17:19 CONCLUSION: No acute intracranial findings. . Discharge Plan - Discharge Disposition Patient Disposition: 67 Disc To [facility] Facility - Discharge Condition Condition: Stable - Discharge Order Discharge Orders: Discharge Order (Routine); Ordered 01/14/18 Ordered By: Dirk Rogers - Physicians Team Primary Care Provider: UNKNOWN, Attending Provider: Dirk Rogers Other Providers: Timi Martin MD
[2018-01-14 15:57] VITALS: PULSE 60
--- NOTE | 2018-01-15 17:48 | ECG ---
Date Performed: 01/13/2018 Time Performed: 07:49:53 PTAGE: 42 years EKG: Sinus rhythm NORMAL ECG PREVIOUS TRACING : 01/12/2018 22.56 DOCTOR: Armen Dunham Interpretating Date/Time 01/15/2018 17:40:59
== END 2018-01-14 16:49 ==
LOC: NEDA 17:01 → NEPD 17:01 → NEDA 01-13 13:11 → N04 01-13 13:26
PROVIDERS: ADMIT Internal Medicine; ATTEND Internal Medicine

== ENCOUNTER 2018-01-14 15:24 | Inpatient (IN) ==
[2018-01-14] MEDS ORDERED: Aluminum/Magnesium/Simethacone Susp 30 ML UDC PO PRN (20:10)
[2018-01-14] MEDS ORDERED: LORazepam 1 MG Tablet PO PRN (20:10)
[2018-01-14] MEDS ORDERED: Acetaminophen 325 MG Tablet PO PRN (20:10)
[2018-01-15 11:02] LABS: Calcium 9.2 mg/dL (8.5-10.1); Carbon Dioxide 25.1 meq/L (21.0-32.0); Potassium 3.6 meq/L (3.5-5.1)
[2018-01-15 11:05] LABS: Chol/HDL Ratio 7.57 Ratio; HDL Cholesterol 26.8 mg/dL (40.0-60.0)
--- NOTE | 2018-01-15 12:04 | P.HPPSY ---
Provisional Diagnosis Admission Date: January 14, 2018 16:50 Wade I.: Schizophrenia Competence Certification of Person's Competence To Provide Express and Informed Consent I have personally examined Jesus Iqbal, a person being served at [facility] onJanuary 15, 2018 1157. Express and informed consent means consent voluntarily given in writing, by a competent person, after sufficient explanation and disclosure of the subject matter involved to enable the person to make a knowing and willful decision without any element of force, fraud, deceit, duress, or other form of constraint or coercion. This person is 18 years of age or older, is not now known to be incompetent to consent to treatment with a guardian advocate, and does not have a health care surrogate or proxy currently making medical treatment decisions. I have found this person to be one of the following: [] Competent to provide express and informed consent, as defined above, for voluntary admission to this facility and is competent to provide express and informed consent for treatment. He/she has the consistent capacity to make well reasoned, willful, and knowing decisions concerning his or her medical or mental health treatment. The person fully and consistently understands the purpose of the admission for examination/placement and is fully capable of personally exercising all rights assured [place] [x] Incompetent to provide express and informed consent to voluntary admission, and this is incompetent to provide express and informed consent to treatment. The person must be transferred to involuntary status and a petition for a guardian advocate filed with the Circuit Court. [] Refusing to provide express and informed consent to voluntary admission but is competent to provide express and informed consent for treatment. The person must be discharged or transferred to involuntary status. Form shall be completed within 24 hours of a person's arrival at the receiving facility and filed in the clinical record of each person: 1. Admitted on a voluntary basis 2. Permitted to provide express and informed consent to his/her own treatment 3. Allowed to transfer from involuntary to voluntary status 4. Prior to permitting a person to consent to his or her own treatment after having been previously found incompetent to consent to treatment. History of Present Illness Capacity: Lacks capacity History of Present Illness: 01/13/2018, based on my initial encounter with the patient in the medical floor : the patient is a 42-year-old man, single, unemployed, domiciled in [facility], with an extensive psychiatric history of schizophrenia, multiple psychiatric hospitalizations, but the last hospitalization was about 6 years ago , he follows up with fact team in [facility], he is on trazodone 100 mg at bedtime, Oxcarbazepine 600 mg 3 times daily, Seroquel 600 mg at bedtime, benztropine 1 mg twice daily, Invega Sustenna 156 mg monthly, last dose december 23, medical history hypertension, obesity, who presents to the emergency department on the [place] act for the evaluation of altered mental status. The patient is under observation in the medical ER due to elevated troponin, UTI. Consulted to psychiatry for evaluation. EMR reviewed. Collateral information from [facility] was obtained. They described the patient is a very polite and calm patient, compliant with his medications, usually not problematic, but for the last week he has been acting out of character, quite agitated, disorganized, not making sense, and in the last 2 days even aggressive. On my psychiatric evaluation today the patient is calm, but poorly cooperative. The patient is very disorganized and tangential, the patient is unable to provide any meaningful history and sits on the side of his bed giggling and answering questions inappropriately. She is just partially oriented, he knows he is in the hospital, but he does not know the date and he does not know who the president is. The patient reports that he has been hearing the voices of treatment talking to him, usually telling him to take his medications. He seems to be quite internally preoccupied and paranoid. He denies the use of alcohol and illegal drugs. Today: The patient is ready in 2700 unit. Patient is extremely disorganized, unable to follow a logical conversation. He says that he is very concerned because he is dying soon of lung cancer, and all the patient's here a going to of lung cancer 2. Immediately he tells me that, he started crying, but just seconds later started laughing quite inappropriately. In the unit the patient has being walking back and forward, laughing inappropriately, talking to himself, but no agitated or aggressive. I had got collateral information from directly, who described the patient as a usually very polite and calm person. A baseline he is able to sustain quite decent conversation, answer questions, and disoriented. But in the last week the patient has been frequently agitated, even aggressive with the staff, no making much sense. He clarifies that the patient got his shot of Depo medication, Invega Sustenna, on December 23. PPHx: psychiatric history of schizophrenia, multiple psychiatric hospitalizations, but the last hospitalization was about 6 years ago, he follows up with fact team in [facility], he is on trazodone 100 mg at bedtime, Oxcarbazepine 600 mg 3 times daily, Seroquel 600 mg at bedtime, benztropine 1 mg twice daily, Invega Sustenna 156 mg monthly, PMHx: obesity, UTI Substance Hx: He denies the use of iliigal drugs and alcohol Family hx: He denies psychiatric family history Social Hx: man, single, unemployed, domiciled in [facility], he has a brother who is next of Olema - Inpatient Certification I certify that the inpatient services were ordered in accordance with Medicare regulations governing the order. This includes certification that hospital inpatient services are reasonable and necessary and in the case of services not specified as inpatient-only under 42 CFR 419.22(n), that they are appropriately provided as inpatient services in accordance to with the 2-midnight benchmark under 43 CFR 412.3(e) I certify that inpatient psychiatric hospital services are medically necessary. Evaluation and treatment and/or diagnostic testing are expected to improve the patient's condition. The patient needs on a daily basis, active treatment furnished directly by or requiring the supervision of inpatient psychiatric facility personnel. Review of Systems Constitutional: Denies anorexia, Denies body ache(s), Denies chills, Denies daytime sleepiness, Denies excessive sweating, Denies fatigue, Denies fever(s), Denies headache(s), Denies increased appetite, Denies lack of energy, Denies malaise, Denies night sweats, Denies weakness, Denies weight gain, Denies weight loss, Denies other Eyes: Denies blind spots, Denies blurry vision, Denies bulging eyes, Denies change in vision, Denies double vision, Denies discharge, Denies dry eyes, Denies floaters, Denies irritation, Denies itchy eyes, Denies loss of vision, Denies pain, Denies requires corrective lenses, Denies sensitivity to light, Denies other Ears, Nose, Mouth, and Throat: Denies abnormal hearing, Denies bleeding gums, Denies bad breath, Denies change in voice, Denies dental pain, Denies difficulty swallowing, Denies dizziness, Denies dry mouth, Denies ear discharge , Denies ear pain, Denies facial pain, Denies headache(s), Denies hearing loss, Denies hoarseness, Denies lip swelling, Denies nosebleed, Denies mouth lesions, Denies mouth pain, Denies nasal congestion, Denies nasal discharge, Denies nasal obstruction, Denies nasal trauma, Denies neck lump, Denies neck pain, Denies nose pain, Denies pain with swallowing, Denies poor balance, Denies post nasal drip, Denies ringing in the ears, Denies sinus pain, Denies sinus pressure , Denies sore throat, Denies throat swelling, Denies tongue swelling, Denies other Cardiovascular: Denies chest pain, Denies chest pain at rest, Denies chest pain with activity, Denies excessive sweating, Denies fainting, Denies fast heart rate, Denies foot swelling, Denies generalized swelling, Denies irregular heart rhythm, Denies leg pain with activity, Denies leg sores, Denies leg swelling, Denies lightheadedness, Denies radiating jaw, neck or arm pain, Denies rapid, pounding, or irregular heartbeat, Denies shortness of breath, Denies shortness of breath with activity, Denies shortness of breath when lying down, Denies shortness of breath causing sudden awakening, Denies slow heart rate, Denies other Respiratory: Denies change in phlegm color, Denies chest congestion, Denies cough, Denies coughing up blood, Denies excessive phlegm production, Denies pain on inspiration, Denies pain with cough, Denies shortness of breath, Denies shortness of breath with activity, Denies snoring, Denies stridor, Denies wheezing, Denies other Gastrointestinal: Denies abdominal pain, Denies belching, Denies black, tarry stools, Denies bloating, Denies bright, red blood in stools, Denies change in bowel habits, Denies constant urge to pass stool, Denies change in stools, Denies coffee ground vomit, Denies constipation, Denies cramping, Denies difficulty swallowing, Denies excessive passing of gas, Denies feeling full early, Denies heartburn, Denies incontinent of stools, Denies loose stools, Denies nausea, Denies pain with swallowing, Denies vomiting, Denies vomiting blood, Denies other Genitourinary: Denies blood in semen, Denies blood in urine, Denies decreased urination, Denies difficulty urinating, Denies difficulty with ejaculations, Denies erectile dysfunction, Denies genital lesions, Denies genital pain, Denies painful urination, Denies side pain, Denies frequent nighttime urination , Denies painful ejaculations, Denies penile discharge, Denies scrotal swelling , Denies testicle lump, Denies testicle pain, Denies urinary frequency, Denies urinary hesitancy, Denies urinary incontinence, Denies urinary urgency, Denies other Musculoskeletal: Denies abnormal walking, Denies back pain, Denies body aches, Denies decreased muscle mass, Denies deformity, Denies joint pain, Denies joint swelling, Denies limited joint movement, Denies loss of height, Denies muscle cramps, Denies muscle weakness, Denies neck pain, Denies numbness, Denies radiating pain into limb, Denies stiffness, Denies tingling, Denies other Neurologic: Denies abnormal hearing, Denies abnormal movements, Denies abnormal speech, Denies abnormal walking, Denies behavioral changes, Denies burning sensations, Denies confusion, Denies dizziness, Denies fainting, Denies frequent falls, Denies headache(s), Denies lack of coordination, Denies localized weakness, Denies loss of vision, Denies memory loss, Denies numbness, Denies other visual disturbances, Denies radiating pain, Denies restless legs, Denies convulsions, Denies seizure-like activity, Denies sensory deficit, Denies tingling, Denies tingling/numbness/burning sensations, Denies tremor(s), Denies unsteadiness, Denies weakness, Denies other Psychiatric: Reports paranoia Comments: Responding to internal stimuli, quite disorder PMFSH - History History Provided By: Patient, Medical Record - Medical History Medical History: Medical History (Last Reviewed 01/12/18 @ 17:26 by ALLEN Romeo) Acute exacerbation of chronic schizophrenia - Family History Family History: Family History (Last Updated 01/12/18 @ 21:16 by Mckenzie Zurita MD) Other Family history normal - Tobacco History Second Hand Smoke Exposure: No Tobacco Use In Past 30 Days: Yes Smoking Status: Heavy tobacco smoker Tobacco Type: Cigarettes - Alcohol History How Often Do You Have a Drink Containing Alcohol: Never - Substance Use History Substance History: No History of Abuse - Immunization History Tetanus Immunization: >5 Years Hx Influenza Vaccine This Season: No Medications and Allergies Active Medications: Active Medications Acetaminophen (Tylenol) 650 mg PO Q4H PRN PRN Reason: Pain 1-5 or Temp >101F Al Hydrox/Mg Hydrox/Simethicone (Mag-Al Plus Susp Liq) 30 ml PO Q6H PRN PRN Reason: DYSPEPSIA Al Hydroxide/Mg Hydroxide (Milk Of Magnesia Liq) 30 ml PO DAILY PRN PRN Reason: CONSTIPATION Aspirin (Ecotrin) 81 mg PO DAILY FATEMEH Lorazepam (Ativan) 1 mg PO Q6H PRN PRN Reason: MODERATE TO SEVERE ANXIETY Lorazepam (Ativan Inj) 1 mg IM Q6H PRN PRN Reason: MODERATE TO SEVERE ANXIETY Metoprolol Tartrate (Lopressor) 100 mg PO BID [facility] Nicotine (Habitrol 21 Mg Patch.24 Hr) 1 patch T-DERMAL DAILY [facility] Last Admin: 01/15/18 10:51 Dose: Not Given Paliperidone Palmitate (Invega Er) 1.5 mg PO DAILY [facility] Patch Removal (Remove Old Patch) 1 each T-DERMAL HS [facility] Allergies Allergy/AdvReac Type Severity Reaction Status Date / Time clozapine Allergy Severe Irritation Verified 01/12/18 18:33 ziprasidone Allergy Severe Rash Verified 01/12/18 18:33 lithium Allergy Rash Verified 01/13/18 00:00 *MDRO Multi-Drug Resistant AdvReac Unknown Anxiety Uncoded 01/12/18 18:33 Organism Home Medications Medication Instructions Recorded Confirmed Type bumetanide 2 mg PO DAILY 01/13/18 01/13/18 History fenofibrate nanocrystallized 145 mg PO DAILY 01/13/18 01/13/18 History loratadine 10 mg PO DAILY 01/13/18 01/13/18 History metoprolol tartrate 100 mg PO BID 01/13/18 01/13/18 History omeprazole 20 mg PO DAILY 01/13/18 01/13/18 History oxcarbazepine 600 mg PO BID 01/13/18 01/13/18 History phenazopyridine 200 mg PO TID 01/13/18 01/13/18 History potassium 10 meq PO DAILY 01/13/18 01/13/18 History trazodone 150 mg PO DAILY 01/13/18 01/13/18 History Results - Labs CBC & Chem 7: 01/15/18 09:32 Labs: Laboratory Results - last 24 hr 01/15/18 09:32 Sodium 139 Potassium 3.6 Chloride 105 Carbon Dioxide 25.1 Anion Gap 9 BUN 14 Creatinine 1.12 Estimated GFR 73 L Random Glucose 116 H Calcium 9.2 Triglycerides 466 H Cholesterol 203 H LDL Cholesterol, Calc HDL Cholesterol 26.8 L Cholesterol/HDL Ratio 7.57 Exam Vital signs: Vital Signs 01/14/18 19:00 01/15/18 06:33 Temperature 98.2 F 98.1 F Pulse Rate 79 82 Respiratory Rate 18 18 Blood Pressure 143/68 H 149/92 H Pulse Oximetry 97 Intake & Output 01/14/18 01/15/18 01/15/18 18:59 06:59 18:59 Weight 117.5 kg Other: Weight On Admission 117.5 kg Narrative: The patient does not present a significant psychomotor agitation retardation, no bilateral tremors, no EPS, no withdrawal symptoms, no gait disturbance Mental Status Examination Appearance: Dirty, Other (Obese) Consciousness: Alert Orientation: Person, Place Speech: Slow, Incoherent Language: Adequate Fund of Knowledge: Inadequate Attention and Concentration: Easily distracted Memory: Impaired Mood: Irritable Affect: Irritable Thought Process & Associations: Disorganized Thought Content: Bizarre thinking, Derealization, Delusional Hallucination Type: None Delusion Type: Bizarre, Paranoid Suicidal Ideation: No Suicidal Plan: No Suicidal Intention: No Homicidal Ideation: No Homicidal Plan: No Homicidal Intention: No Insight: Poor Judgment: Poor Assessment and Plan - Assessment (1) Schizophrenia Code(s): F20.9 - Schizophrenia, unspecified Status: Acute - Plan Plan: Estimated LOS: [] days On psychiatric evaluation today the patient presents clear features of psychiatric decompensation, the patient is acutely psychotic, with prominent disorganized and tangential speech, bizarre behavior, neologisms, loosening of associations, somatic delusions, he also presents just partially oriented, with fluctuation of consciousness and as per staff in [facility] he has being also agitated and aggressive which is out of character for him. There is a patient with a psychiatric history of schizophrenia, multiple psychiatric hospitalizations, last hospitalization was about 6 years ago, he follows up with [facility]. This presentation could be related with a major psychotic illness decompensation, but also delirium related with UTI and potential heart condition must be in the differential. Patient definitely meets criteria for involuntary psychiatric admission given his acute psychosis. I will restart his Seroquel 600 mg at bedtime, oxcarbazepine 600 twice daily, trazodone 100 mg. QTC is 380. I will hold the benztropine to avoid more anticholinergic cognitive impairment at the moment. confirmed last does of Invega Sustenna 156 mg on december 23 . Justification for Continued Inpatient Stay: Continue Admission
[2018-01-15 12:06] LABS: Hemoglobin A1c 5.2 % (4.3-6.0)
[2018-01-15] MEDS: Ciprofloxacin 500 MG Tablet PO SCH ×2 (14:06→21:28)
[2018-01-15] MEDS: Metoprolol Tartrate 100 MG Tablet PO SCH (21:29)
[2018-01-15] MEDS: OXcarbazepine 300 MG Tablet PO SCH (21:29)
[2018-01-16] MEDS: OXcarbazepine 300 MG Tablet PO SCH ×3 (08:43→20:41)
[2018-01-16] MEDS: Ciprofloxacin 500 MG Tablet PO SCH ×2 (08:49→20:42)
[2018-01-16] MEDS: Metoprolol Tartrate 100 MG Tablet PO SCH ×2 (08:49→20:42)
--- NOTE | 2018-01-16 13:13 | P.PNPSY ---
Subjective Remarks: This is a request for second opinion. Admission note was reviewed and I agree with the history. Patient was seen and case was discussed with nursing. Patient remains psychotic and internally preoccupied. He does have poor insight concerning the reason for his admission. He did not state any specific delusional material during this interview. Is compliant with his medications. Has not had any outbursts today Mental Status Examination Appearance: Dirty, Other (Obese) Consciousness: Alert Orientation: Person, Place Speech: Slow, Incoherent Language: Adequate Fund of Knowledge: Inadequate Attention and Concentration: Inadequate Memory: Impaired Mood: Irritable Affect: Irritable Thought Process & Associations: Disorganized Thought Content: Bizarre thinking, Derealization, Delusional (Internal stimuli) Hallucination Type: None Delusion Type: Bizarre, Paranoid Suicidal Ideation: No Suicidal Plan: No Suicidal Intention: No Homicidal Ideation: No Homicidal Plan: No Homicidal Intention: No Insight: Poor Judgment: Poor Assessment and Plan - Assessment (1) Schizophrenia Code(s): F20.9 - Schizophrenia, unspecified Status: Acute - Plan Plan: I agree with the first opinion to continue petition. Criteria include acute psychosis Justification for Continued Inpatient Stay: Patient would decompensate in a less restrictive setting
[2018-01-16] MEDS: traZODone 50 MG Tablet PO SCH (13:56)
[2018-01-17] MEDS: OXcarbazepine 300 MG Tablet PO SCH ×2 (09:17→20:40)
[2018-01-17] MEDS: Ciprofloxacin 500 MG Tablet PO SCH ×2 (09:17→20:41)
[2018-01-17] MEDS: traZODone 50 MG Tablet PO SCH (09:17)
[2018-01-17] MEDS: Metoprolol Tartrate 100 MG Tablet PO SCH ×2 (09:17→20:41)
--- NOTE | 2018-01-17 13:55 | P.PNPSY ---
Subjective Remarks: The patient was seen today for psychiatric reevaluation. Patient was widely discussed with nursing charge. Documentation from weekend was reviewed. On my psychiatric evaluation today the patient is definitely calmer, more cooperative , much more organized than the last time I saw him last Wednesday. The patient told me that he feels much better, sleeping better, and have a better appetite. I discussed with the patient the importance of reducing nicotine use, and he expressed agreement. He also is in agreement with being discharged back to longterm and he does not seem to be so paranoid about them. Patient is compliant with medications, no significant side effects. No aggressive behavior , no violence, no agitation reported. Better moments in which the patient is internally preoccupied and talking to himself in the unit. Mental Status Examination Appearance: Dirty, Other (Obese) Consciousness: Alert Orientation: Person, Place Speech: Slow, Incoherent Language: Adequate Fund of Knowledge: Inadequate Attention and Concentration: Inadequate Memory: Impaired Mood: Irritable Affect: Irritable Thought Process & Associations: Disorganized Thought Content: Bizarre thinking, Derealization, Delusional (Internal stimuli) Hallucination Type: None Delusion Type: Bizarre, Paranoid Suicidal Ideation: No Suicidal Plan: No Suicidal Intention: No Homicidal Ideation: No Homicidal Plan: No Homicidal Intention: No Insight: Fair Judgment: Impulsive Assessment and Plan - Assessment (1) Schizophrenia Code(s): F20.9 - Schizophrenia, unspecified Status: Acute - Plan Plan: Patient continues to be psychotic, but improved since first day of admission. Today we will increase Seroquel to 400 mg at bedtime. Extensive discussion about the importance of reducing nicotine use Justification for Continued Inpatient Stay: Patient remains acutely psychotic.
[2018-01-18] MEDS: traZODone 50 MG Tablet PO SCH (09:30)
[2018-01-18] MEDS: OXcarbazepine 300 MG Tablet PO SCH (09:30)
[2018-01-18] MEDS: Ciprofloxacin 500 MG Tablet PO SCH (09:30)
[2018-01-18] MEDS: Metoprolol Tartrate 100 MG Tablet PO SCH (09:31)
--- NOTE | 2018-01-18 13:37 | P.DSPSY ---
Psychiatry Discharge Summary Inpatient Psychiatric care?: Yes Advance Directives: No Mental Health Advance Directive: Yes Health Care Proxy: Yes - Admission Admission Date: January 14, 2018 16:50 - Admission Diagnosis (1) Schizophrenia Code(s): F20.9 - Schizophrenia, unspecified Brief History: 01/13/2018, based on my initial encounter with the patient in the medical floor : the patient is a 42-year-old man, single, unemployed, domiciled in [facility], with an extensive psychiatric history of schizophrenia, multiple psychiatric hospitalizations, but the last hospitalization was about 6 years ago , he follows up with fact team in [facility], he is on trazodone 100 mg at bedtime, Oxcarbazepine 600 mg 3 times daily, Seroquel 600 mg at bedtime, benztropine 1 mg twice daily, Invega Sustenna 156 mg monthly, last dose december 23, medical history hypertension, obesity, who presents to the emergency department on the act for the evaluation of altered mental status. The patient is under observation in the medical ER due to elevated troponin, UTI. Consulted to psychiatry for evaluation. EMR reviewed. Collateral information from [facility] was obtained. They described the patient is a very polite and calm patient, compliant with his medications, usually not problematic, but for the last week he has been acting out of character, quite agitated, disorganized, not making sense, and in the last 2 days even aggressive. On my psychiatric evaluation today the patient is calm, but poorly cooperative. The patient is very disorganized and tangential, the patient is unable to provide any meaningful history and sits on the side of his bed giggling and answering questions inappropriately. She is just partially oriented, he knows he is in the hospital, but he does not know the date and he does not know who the president is. The patient reports that he has been hearing the voices of treatment talking to him, usually telling him to take his medications. He seems to be quite internally preoccupied and paranoid. He denies the use of alcohol and illegal drugs. Today: The patient is ready in 2700 unit. Patient is extremely disorganized, unable to follow a logical conversation. He says that he is very concerned because he is dying soon of lung cancer, and all the patient's here a going to of lung cancer 2. Immediately he tells me that, he started crying, but just seconds later started laughing quite inappropriately. In the unit the patient has being walking back and forward, laughing inappropriately, talking to himself, but no agitated or aggressive. I had got collateral information from directly, who described the patient as a usually very polite and calm person. A baseline he is able to sustain quite decent conversation, answer questions, and disoriented. But in the last week the patient has been frequently agitated, even aggressive with the staff, no making much sense. He clarifies that the patient got his shot of Depo medication, Invega Sustenna, on December 23. PPHx: psychiatric history of schizophrenia, multiple psychiatric hospitalizations, but the last hospitalization was about 6 years ago, he follows up with fact team in [facility], he is on trazodone 100 mg at bedtime, Oxcarbazepine 600 mg 3 times daily, Seroquel 600 mg at bedtime, benztropine 1 mg twice daily, Invega Sustenna 156 mg monthly, PMHx: obesity, UTI Substance Hx: He denies the use of iliigal drugs and alcohol Family hx: He denies psychiatric family history Social Hx: man, single, unemployed, domiciled in [facility], he has a brother who is next of Misti Tobacco Use In Past 30 Days: Yes How Often Do You Have a Drink Containing Alcohol: Never Hospital Course: The patient was admitted in psychiatry with symptomatology of acute psychosis. The patient was disorganized, aggressive, talking to himself, paranoid and for this reason he was brought to the hospital on the [place] act from his residential facility. A psychiatric and psychosocial assessment were performed. The patient was placed in 2600 unit. His psychotropics were restarted. I communicated personally with the fact team who explained that the patient was aggressive at the retirement, he was not taking his medications, and was becoming quite decompensated. They also explained that the patient was in additional IM medication, Invega Sustenna 154 mg given in December 23, 2017. The patient is started to take his medications, he showed an immediate positive response and came back to baseline. At the moment of this discharge the patient denies depression, denies anxiety, denies j luis and psychosis. He does present bizarre at times, hearing voices telling him to take his medications, but these are residual symptoms of schizophrenia. - Discharge Discharge Date: 01/18/18 - Discharge Diagnosis (1) Schizophrenia Code(s): F20.9 - Schizophrenia, unspecified Status: Acute Discharge Disposition: Psychiatric Facility - Discharge Instructions Discharge Diet: Heart Healthy Diet - Discharge Time > 30 minutes Mental Status Examination Appearance: Dirty, Other (Obese) Consciousness: Alert Orientation: Person, Place Speech: Slow, Incoherent Language: Adequate Fund of Knowledge: Inadequate Attention and Concentration: Inadequate Memory: Impaired Mood: Irritable Affect: Irritable Thought Process & Associations: Disorganized Thought Content: Bizarre thinking, Derealization, Delusional (Internal stimuli) Hallucination Type: None Delusion Type: Bizarre, Paranoid Suicidal Ideation: No Suicidal Plan: No Suicidal Intention: No Homicidal Ideation: No Homicidal Plan: No Homicidal Intention: No Insight: Fair Judgment: Impulsive Discharge/Advance Care Plan - Results Vital Signs: Last Vital Signs Temp 97.6 F 01/18/18 06:01 Pulse 88 01/18/18 06:01 Resp 18 01/18/18 06:01 BP 141/67 H 01/18/18 06:01 Pulse Ox 95 01/18/18 06:01 Lab Results: Abnormal Lab Results 01/17/18 22:54 POC Glucose 122 H Laboratory Results Hemoglobin A1c 5.2 % (4.3-6.0) 01/15/18 09:32 Triglycerides 466 mg/dL (42-150) H 01/15/18 09:32 Cholesterol 203 mg/dL (120-200) H 01/15/18 09:32 LDL Cholesterol, Calc mg/dL (0-99) 01/15/18 09:32 HDL Cholesterol 26.8 mg/dL (40.0-60.0) L 01/15/18 09:32 Summary of Procedures: None Pending Results: None - Medications Number of antipsychotic medications at discharge: 0 - Discharge Care Plan Goals to Promote Your Health: * To prevent worsening of your condition and complications * To maintain your health at the optimal level Directions to Meet Your Goals: Take your medications as prescribed Follow your dietary instruction Follow activity as directed Keep your appointments as scheduled Take your immunizations and boosters as scheduled If your symptoms worsen call your PCP, if no PCP go to Urgent Care Center or Emergency Room For 14/12 questions related to your inpatient stay or results of tests pending at discharge, please contact Dr. Timi Martin MD at [phone] Smoking is Dangerous to Your Health. Avoid second hand smoking
== END 2018-01-18 18:25 | disposition home or self-care (01) ==
LOC: H270 16:50 → H260 01-16 16:14
PROVIDERS: ADMIT Psychiatry & Neurology Psychiatry; ATTEND Psychiatry & Neurology Psychiatry

== ENCOUNTER 2018-02-08 18:12 | Inpatient (IN) ==
[2018-02-08 19:50] LABS: Baso % (Auto) 0.5 % (0.0-2.0); Eos # (Auto) 0.3 th/mm3 (0.0-0.4); Eos % (Auto) 3.7 % (0.0-4.0); Hematocrit 40.2 % (39.0-51.0); Hemoglobin 13.7 gm/dL (13.0-17.0); Lymph # (Auto) 2.2 th/mm3 (1.0-4.8); Mean Corpuscular Hemoglobin 29.8 pg (27.0-34.0); Mean Corpuscular Volume 87.8 fL (80.0-100.0); Mean Platelet Volume 8.2 fL (7.0-11.0); Mono # (Auto) 0.5 th/mm3 (0.0-0.9); Mono % (Auto) 7.1 % (0.0-8.0); Neut # (Auto) 3.8 th/mm3 (1.8-7.7); Neut % (Auto) 56.7 % (16.0-70.0); Platelet Count 246 th/mm3 (150-450); Red Blood Count 4.58 mil/mm3 (4.50-5.90); Red Cell Distribution Width 13.9 % (11.6-17.2); White Blood Count 6.8 th/mm3 (4.0-11.0)
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
[2018-02-08 20:08] LABS: Alanine Aminotransferase 42 U/L (12-78)
[2018-02-08 20:09] LABS: Albumin 4.3 g/dL (3.4-5.0); Anion Gap 8 meq/L (5-15); Aspartate Aminotransferase 33 U/L (15-37); Blood Urea Nitrogen 21 mg/dL (7-18); Calcium 8.9 mg/dL (8.5-10.1); Chloride 107 meq/L (98-107); Glomerular Filtration Rate 66 mL/min (>89); Glucose,Random 139 mg/dL (74-106); Potassium 3.8 meq/L (3.5-5.1); Sodium 140 meq/L (136-145)
[2018-02-08 20:11] LABS: Alkaline Phosphatase 63 U/L (45-117); Total Protein 7.8 g/dL (6.4-8.2)
[2018-02-08 20:49] LABS: Bilirubin,Urine Negative (Negative); Calcium Oxalate Crystals,Urine Rare /hpf; Clarity,Urine Hazy (Clear); Color,Urine Yellow (Yellw/Straw); Glucose,Urine (UA) Negative (Negative); Leukocyte Esterase,Urine Negative (Negative); Mucus,Urine Few /lpf (Occasional); Nitrite,Urine Negative (Negative); Specific Gravity,Urine 1.027 (1.002-1.035); Squamous Epithelial Cell,Urine 5 /hpf (0-5); Urobilinogen,Urine 4 or Greater mg/dL (Less than 2)
[2018-02-08 21:41] LABS: Amphetamine Screen,Urine Neg (Neg); Barbiturate Screen,Urine Neg (Neg); Cannabinoid Screen,Urine Neg (Neg); Cocaine Screen,Urine Neg (Neg)
[2018-02-08 21:46] LABS: Opiate Screen,Urine Neg (Neg)
[2018-02-08] MEDS ORDERED: Aluminum/Magnesium/Simethacone Susp 30 ML UDC PO PRN (23:32)
[2018-02-09] MEDS: Acetaminophen 325 MG Tablet PO PRN ×2 (02:49→17:27)
[2018-02-09] MEDS: Fenofibrate 145 MG Tablet PO SCH (08:17)
[2018-02-09] MEDS: Loratadine 10 MG Tablet PO SCH (08:17)
[2018-02-09] MEDS: Metoprolol Tartrate 100 MG Tablet PO SCH ×2 (08:17→21:06)
[2018-02-09] MEDS: OXcarbazepine 600 MG Tablet PO SCH ×2 (08:17→21:06)
[2018-02-09] MEDS: Potassium Chloride 10 MEQ ER Capsule PO SCH (08:17)
[2018-02-09] MEDS: Pantoprazole Sodium 20 MG DR Tablet PO SCH (08:17)
[2018-02-09] MEDS ORDERED: traZODone 50 MG Tablet PO SCH (09:00)
[2018-02-09] MEDS ORDERED: traZODone 100 MG Tablet PO SCH (09:00)
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
[2018-02-10] MEDS: Metoprolol Tartrate 100 MG Tablet PO SCH ×2 (08:19→21:17)
[2018-02-10] MEDS: Potassium Chloride 10 MEQ ER Capsule PO SCH (08:19)
[2018-02-10] MEDS: Fenofibrate 145 MG Tablet PO SCH (08:19)
[2018-02-10] MEDS: Pantoprazole Sodium 20 MG DR Tablet PO SCH (08:20)
[2018-02-10] MEDS: OXcarbazepine 600 MG Tablet PO SCH ×2 (08:20→21:17)
[2018-02-10] MEDS: Loratadine 10 MG Tablet PO SCH (08:20)
[2018-02-10 08:23] LABS: Calcium 9.5 mg/dL (8.5-10.1); Carbon Dioxide 27.2 meq/L (21.0-32.0); Potassium 4.1 meq/L (3.5-5.1)
[2018-02-10 08:25] LABS: Chol/HDL Ratio 4.89 Ratio; HDL Cholesterol 42.9 mg/dL (40.0-60.0)
--- NOTE | 2018-02-10 12:39 | P.PNIM ---
Subjective Interval history: Patient reports he is feeling okay. He has no complaints. Physical Exam Vital signs: Vital Signs 02/10/18 06:16 Temperature 98.0 F Pulse Rate 65 Respiratory Rate 17 Blood Pressure 163/81 H Pulse Oximetry 94 L Intake & Output 02/09/18 02/10/18 02/10/18 18:59 06:59 18:59 Intake Total 720 / 720 Balance 720 / 720 Weight 121.4 kg Intake: Oral 720 / 720 Narrative: GENERAL: This is a well-nourished, well-developed patient, in no apparent distress. CARDIOVASCULAR: Normal rate and regular rhythm without murmurs, gallops, or rubs. RESPIRATORY: Good respiratory efforts. Breath sounds equal and clear to auscultation bilaterally. GASTROINTESTINAL: Abdomen soft, non-tender, non-distended. Normal active bowel sounds MUSCULOSKELETAL: Extremities without cyanosis, or edema. NEURO: Alert & Oriented to self and place but not situation. Moves all ext x4 PSYCH: Appropriate mood and affect. Results - Labs CBC & Chem 7: 02/08/18 18:29 02/10/18 07:41 Laboratory Results - last 24 hr 02/10/18 07:41 Sodium 137 Potassium 4.1 Chloride 101 Carbon Dioxide 27.2 Anion Gap 9 BUN 18 Creatinine 1.13 Estimated GFR 72 L Random Glucose 94 Calcium 9.5 Triglycerides 326 H Cholesterol 210 H LDL Cholesterol, Calc 102 H HDL Cholesterol 42.9 Cholesterol/HDL Ratio 4.89 Assessment and Plan - Plan 42 Y/O male with: Acute exacerbation of schizophrenia -Managed by psychiatry HTN, chronic, controlled -Continue home medications metoprolol, and Bumex -Monitor vitals, adjust accordingly Hypertriglyceridemia -Continue home dose Tricor. Triglycerides levels noted. Unsure if he is compliant at home with statin. DVT prophylaxis: ambulation Patient is medically stable, will sign off. Please call or reconsult with questions.
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
[2018-02-10] MEDS: Acetaminophen 325 MG Tablet PO PRN (14:31)
[2018-02-10 15:54] LABS: Hemoglobin A1c 5.2 % (4.3-6.0)
--- NOTE | 2018-02-10 19:19 | ECG ---
Date Performed: 02/09/2018 Time Performed: 16:35:07 PTAGE: 42 years EKG: Sinus rhythm NORMAL ECG PREVIOUS TRACING : 01/13/2018 07.49 Since the previous tracing, no significant change noted DOCTOR: Erick Graves Interpretating Date/Time 02/10/2018 19:18:26
--- NOTE | 2018-02-10 20:16 | P.PNPSY ---
Subjective Remarks: Patient seen for follow, chart reviewed. Discussion nursing staff reported the patient continues to be laughing appropriately, slept well last evening. Patient was found ambulating on unit noted to be calm and cooperative.Patient noted to be disorganized during interview, delusional, bizarre statements. Patient states feeling better yet patient had not been given medications as healthcare surrogate has yet to be established to provide consent for medications. 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 He denies any perceptual disturbances yet noted to be laughing to self on the unit. Review of Systems All other systems reviewed negative except as stated in HPI Mental Status Examination Appearance: Disheveled Consciousness: Alert Orientation: Person, Place (At least) Motor Activity: Normal gait Speech: Unremarkable Language: Adequate Fund of Knowledge: Inadequate Attention and Concentration: Easily distracted Memory: Unremarkable Mood: Other (Calm) Affect: Other (Laughing inappropriately at times. Childlike.) Thought Process & Associations: Tangential Thought Content: Bizarre thinking, Hallucinations Hallucination Type: Other (Appears internally stimulated) Delusion Type: None Suicidal Ideation: No ("Getting better") Suicidal Plan: No Suicidal Intention: No Homicidal Ideation: No Homicidal Plan: No Homicidal Intention: No Insight: Poor Judgment: Poor Assessment and Plan - Assessment (1) Schizophrenia Code(s): F20.9 - Schizophrenia, unspecified Status: Acute - Plan Plan: Patient continues with disorganization, consent has yet to be established as search for healthcare surrogate is yet to be found to consent for treatment Continue to monitor mood and behavior. Discharge planning in progress. Justification for Continued Inpatient Stay: At risk for further decompensation at lower level of care. Request Healthcare Surrogate/Guardian Advocate?: No
[2018-02-11] MEDS: Metoprolol Tartrate 100 MG Tablet PO SCH ×2 (09:16→21:24)
[2018-02-11] MEDS: Pantoprazole Sodium 20 MG DR Tablet PO SCH (09:17)
[2018-02-11] MEDS: Loratadine 10 MG Tablet PO SCH (09:17)
[2018-02-11] MEDS: Potassium Chloride 10 MEQ ER Capsule PO SCH (09:17)
[2018-02-11] MEDS: Fenofibrate 145 MG Tablet PO SCH (13:06)
[2018-02-11] MEDS: OXcarbazepine 600 MG Tablet PO SCH ×2 (13:08→21:24)
[2018-02-11] MEDS: Acetaminophen 325 MG Tablet PO PRN (18:37)
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
[2018-02-12] MEDS: Potassium Chloride 10 MEQ ER Capsule PO SCH (09:00)
[2018-02-12] MEDS: Fenofibrate 145 MG Tablet PO SCH (09:01)
[2018-02-12] MEDS: OXcarbazepine 600 MG Tablet PO SCH ×2 (09:01→21:13)
[2018-02-12] MEDS: Pantoprazole Sodium 20 MG DR Tablet PO SCH (09:03)
[2018-02-12] MEDS: Metoprolol Tartrate 100 MG Tablet PO SCH ×2 (09:03→21:13)
[2018-02-12] MEDS: Loratadine 10 MG Tablet PO SCH (09:03)
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
[2018-02-12] MEDS: traZODone 100 MG Tablet PO PRN (21:13)
[2018-02-12] MEDS: Acetaminophen 325 MG Tablet PO PRN (22:49)
[2018-02-12] MEDS: traZODone 50 MG Tablet PO PRN (23:35)
[2018-02-13] MEDS: Metoprolol Tartrate 100 MG Tablet PO SCH ×2 (08:20→20:57)
[2018-02-13] MEDS: Loratadine 10 MG Tablet PO SCH (08:20)
[2018-02-13] MEDS: Fenofibrate 145 MG Tablet PO SCH (08:21)
[2018-02-13] MEDS: Potassium Chloride 10 MEQ ER Capsule PO SCH (08:21)
[2018-02-13] MEDS: Pantoprazole Sodium 20 MG DR Tablet PO SCH (08:21)
[2018-02-13] MEDS: OXcarbazepine 600 MG Tablet PO SCH ×2 (09:28→20:56)
--- NOTE | 2018-02-13 11:09 | P.PNPSY ---
Subjective Chief Complaint: Schizophrenia Remarks: Medical record reviewed and discussed with nursing staff. Todd, RN and I met with patient in the hallway. Patient states that he is not sleeping. He is currently on 400mg of Seroquel qhs. He is internally stimulated. He states that the voices are active, but the are nice voices and he likes them to keep him company. His hygiene is poor and staff are going to encourage him to complete his ADLs. Review of Systems All other systems reviewed negative except as stated in HPI Mental Status Examination Appearance: Disheveled Consciousness: Alert Orientation: Person, Place Motor Activity: Normal gait Speech: Unremarkable Language: Adequate Fund of Knowledge: Inadequate Attention and Concentration: Easily distracted Memory: Unremarkable Mood: Other (elevated) Affect: Other (Laughing inappropriately at times. Childlike.) Thought Process & Associations: Disorganized Thought Content: Bizarre thinking, Hallucinations Hallucination Type: Other (Appears internally stimulated) Delusion Type: None Suicidal Ideation: No Suicidal Plan: No Suicidal Intention: No Homicidal Ideation: No Homicidal Plan: No Homicidal Intention: No Insight: Poor Judgment: Poor Assessment and Plan - Assessment (1) Schizophrenia Code(s): F20.9 - Schizophrenia, unspecified Status: Acute - Plan Plan: Continue current tx plan Justification for Continued Inpatient Stay: Moving patient to a less restrictive environment may result in his decompensation. Request Healthcare Surrogate/Guardian Advocate?: No
[2018-02-13] MEDS: Acetaminophen 325 MG Tablet PO PRN (20:29)
[2018-02-13] MEDS: traZODone 100 MG Tablet PO PRN (20:56)
[2018-02-13] MEDS: traZODone 50 MG Tablet PO PRN (20:57)
--- NOTE | 2018-02-14 09:25 | P.TTN ---
- Patient Problems Problems: 1. Discharge planning 2. Medication compliance 3. Knowledge deficit 4. Lack of coping skills - Progress Toward Goals Provider Present: Dr. Adriana Loco Provider Input: Spoke to his father on Wednesday. Restarted him on medication. Let' s talk to the FACT team to get his baseline and see how he did over the weekend Nurse(s) Present: Pat Nurse Input: Pt is cooperative and med compliant Psychiatric Counselors Present: Nelly Simmons LCSW, Surya Luna Jr., [facility], Jelly Barger, [facility], Other Psychiatric Therapist Input: Pt can return to [facility] Group Spec/RT/OT/PUGH Present: KEATON Bernardo, Yuan Douglas, OT Group Spec/RT/OT/PUGH Input: Pt attends and participates in most groups appropriately. He is seclusive but social with encouragement - Discharge Plan Pt can return to [facility]. - Documentation Teaching Recipient: Patient
[2018-02-14] MEDS: Potassium Chloride 10 MEQ ER Capsule PO SCH (09:53)
[2018-02-14] MEDS: Pantoprazole Sodium 20 MG DR Tablet PO SCH (09:53)
[2018-02-14] MEDS: Loratadine 10 MG Tablet PO SCH (09:53)
[2018-02-14] MEDS: OXcarbazepine 600 MG Tablet PO SCH ×2 (09:53→20:47)
[2018-02-14] MEDS: Metoprolol Tartrate 100 MG Tablet PO SCH ×2 (09:53→20:47)
[2018-02-14] MEDS: Fenofibrate 145 MG Tablet PO SCH (09:53)
[2018-02-14 17:38] VITALS: O2SAT 95
[2018-02-14] MEDS: traZODone 50 MG Tablet PO PRN (20:48)
[2018-02-14] MEDS: traZODone 100 MG Tablet PO PRN (20:48)
--- NOTE | 2018-02-14 22:50 | P.PNPSY ---
Subjective Chief Complaint: Schizophrenia Remarks: Patient seen for follow, chart reviewed. Discussion nursing staff reported the patient compliant medications, slept well last evening. Patient was found lying hospital bed asleep was able to wake up to engage in interview superficially. Patient said he is feeling tired although reports having been able to sleep last night. States his mood is "okay, reports auditory hallucinations stating "a little bit" but states that he did not pay attention to them was unable to elaborate on content. Patient denies any visual hallucinations denies any paranoid ideations, eating and drinking well. Review of Systems All other systems reviewed negative except as stated in HPI Mental Status Examination Appearance: Appropriate Consciousness: Alert Orientation: Person, Place Motor Activity: Normal gait Speech: Unremarkable Language: Adequate Fund of Knowledge: Inadequate Attention and Concentration: Easily distracted Memory: Unremarkable Mood: Good Affect: Appropriate Thought Process & Associations: Other (D[place]) Thought Content: Bizarre thinking, Hallucinations Hallucination Type: Auditory Delusion Type: None Suicidal Ideation: No Suicidal Plan: No Suicidal Intention: No Homicidal Ideation: No Homicidal Plan: No Homicidal Intention: No Insight: Poor Judgment: Poor Assessment and Plan - Assessment (1) Schizophrenia Code(s): F20.9 - Schizophrenia, unspecified Status: Acute - Plan Plan: Patient continues to endorse auditory hallucinations noted B less disorganized, . We will continue current treatment. We will continue to monitor mood and behavior. Discharge planning in progress. Justification for Continued Inpatient Stay: At risk of further decompensation at lower level of care. Request Healthcare Surrogate/Guardian Advocate?: No
[2018-02-15 05:33] VITALS: BP 132/72; PULSE 79; RESP 17; TEMP 97.2
[2018-02-15] MEDS: OXcarbazepine 600 MG Tablet PO SCH (09:02)
[2018-02-15] MEDS: Fenofibrate 145 MG Tablet PO SCH (09:02)
[2018-02-15] MEDS: Pantoprazole Sodium 20 MG DR Tablet PO SCH (09:02)
[2018-02-15] MEDS: Loratadine 10 MG Tablet PO SCH (09:03)
[2018-02-15] MEDS: Metoprolol Tartrate 100 MG Tablet PO SCH (09:03)
[2018-02-15] MEDS: Potassium Chloride 10 MEQ ER Capsule PO SCH (09:03)
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
== END 2018-02-15 15:15 ==
LOC: NEPJ 18:12 → NEDA 02-09 00:15 → H260 02-09 00:52
PROVIDERS: ADMIT Student in an Organized Health Care Education/Training Program; ATTEND Student in an Organized Health Care Education/Training Program

== ENCOUNTER 2018-03-24 16:43 | Inpatient (IN) ==
[2018-03-24 17:43] LABS: Baso % (Auto) 0.5 % (0.0-2.0); Eos # (Auto) 0.2 th/mm3 (0.0-0.4); Eos % (Auto) 1.9 % (0.0-4.0); Hematocrit 36.4 % (39.0-51.0); Hemoglobin 12.4 gm/dL (13.0-17.0); Lymph # (Auto) 1.8 th/mm3 (1.0-4.8); Lymph % (Auto) 17.6 % (9.0-44.0); Mean Corpuscular Hemoglobin 29.2 pg (27.0-34.0); Mean Corpuscular Volume 85.9 fL (80.0-100.0); Mono # (Auto) 0.7 th/mm3 (0.0-0.9); Mono % (Auto) 6.6 % (0.0-8.0); Neut # (Auto) 7.6 th/mm3 (1.8-7.7); Neut % (Auto) 73.4 % (16.0-70.0); Platelet Count 269 th/mm3 (150-450); Red Blood Count 4.24 mil/mm3 (4.50-5.90); Red Cell Distribution Width 14.8 % (11.6-17.2); White Blood Count 10.3 th/mm3 (4.0-11.0)
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
[2018-03-24 18:04] LABS: Anion Gap 9 meq/L (5-15)
[2018-03-24 18:23] LABS: Alanine Aminotransferase 49 U/L (12-78); Alkaline Phosphatase 70 U/L (45-117); Aspartate Aminotransferase 24 U/L (15-37); Blood Urea Nitrogen 18 mg/dL (7-18); Calcium 8.9 mg/dL (8.5-10.1); Carbon Dioxide 25.4 meq/L (21.0-32.0); Chloride 105 meq/L (98-107); Glomerular Filtration Rate 74 mL/min (>89); Glucose,Random 94 mg/dL (74-106); Magnesium 2.2 mg/dL (1.5-2.5); Potassium 4.2 meq/L (3.5-5.1); Sodium 139 meq/L (136-145); Total Protein 7.8 g/dL (6.4-8.2)
[2018-03-24 22:49] LABS: Bilirubin,Urine Negative (Negative); Clarity,Urine Clear (Clear); Color,Urine Straw (Yellw/Straw); Glucose,Urine (UA) Negative (Negative); Leukocyte Esterase,Urine Negative (Negative); Nitrite,Urine Negative (Negative); Specific Gravity,Urine 1.004 (1.002-1.035); Squamous Epithelial Cell,Urine <1 /hpf (0-5)
[2018-03-24 23:05] LABS: Amphetamine Screen,Urine Neg (Neg); Barbiturate Screen,Urine Neg (Neg); Cannabinoid Screen,Urine Neg (Neg); Cocaine Screen,Urine Neg (Neg)
[2018-03-24 23:28] LABS: Opiate Screen,Urine Neg (Neg)
[2018-03-25] MEDS ORDERED: Bisacodyl 10 MG Supp RECTAL PRN (09:50)
[2018-03-25] MEDS ORDERED: Aluminum/Magnesium/Simethacone Susp 30 ML UDC PO PRN (09:50)
[2018-03-25] MEDS: Divalproex 500 MG ER Tablet PO SCH ×2 (11:55→21:42)
--- NOTE | 2018-03-25 14:59 | P.HPPSY ---
Provisional Diagnosis Admission Date: March 25, 2018 09:56 Dubach I.: Schizophrenia Competence Certification of Person's Competence To Provide Express and Informed Consent I have personally examined Jesus Iqbal, a person being served at [facility] on, March 25, 2018 1428. Express and informed consent means consent voluntarily given in writing, by a competent person, after sufficient explanation and disclosure of the subject matter involved to enable the person to make a knowing and willful decision without any element of force, fraud, deceit, duress, or other form of constraint or coercion. This person is 18 years of age or older, is not now known to be incompetent to consent to treatment with a guardian advocate, and does not have a health care surrogate or proxy currently making medical treatment decisions. I have found this person to be one of the following: [] Competent to provide express and informed consent, as defined above, for voluntary admission to this facility and is competent to provide express and informed consent for treatment. He/she has the consistent capacity to make well reasoned, willful, and knowing decisions concerning his or her medical or mental health treatment. The person fully and consistently understands the purpose of the admission for examination/placement and is fully capable of personally exercising all rights assured [place] Incompetent to provide express and informed consent to voluntary admission, and this is incompetent to provide express and informed consent to treatment. The person must be transferred to involuntary status and a petition for a guardian advocate filed with the Circuit Court. [x] Refusing to provide express and informed consent to voluntary admission but is competent to provide express and informed consent for treatment. The person must be discharged or transferred to involuntary status. Form shall be completed within 24 hours of a person's arrival at the receiving facility and filed in the clinical record of each person: 1. Admitted on a voluntary basis 2. Permitted to provide express and informed consent to his/her own treatment 3. Allowed to transfer from involuntary to voluntary status 4. Prior to permitting a person to consent to his or her own treatment after having been previously found incompetent to consent to treatment. History of Present Illness Capacity: Has capacity History of Present Illness: Patient is a 42-year-old man, domiciled an assisted living facility, single, no children, well known by the department, with a past psychiatric history of schizoaffective disorder, anxiety disorder, multiple previous psychiatric admissions, denies previous suicide attempts, he was just discharged a week weeks ago from [facility], and about a month and a half ago from psychiatry in [place], where he was under the care of Dr. Loco, documentation review, with a past medical history significant for hypertension, the patient is on Trilafon 4 mg twice daily, Invega Sustenna Sustenna, 234 mg apply 2017, Depakote 500 mg twice daily, outpatient care with [facility], he also to the fact team, who presents to the ED for evaluation as a BA from [facility] under [employer] act. According to the [employer] act report the patient lives in assisted living and was telling the caregiver he was going to get a gun and kill multiple people and then himself As per FACT TEAM collateral information the patient has been defecated in the floor, very disorganized, and probably not taking his medications since his valproic acid level is subtherapeutic. Right now is 29. He also made a statement that he was going to lay in front of a train and there was train tracks nearby where the patient lives. Also states his hearing voices. Patient has uncooperative during HPI. He is not answering questions appropriately and he is laughing continuously and inappropriately when he answers questions inappropriately. On psychiatric examination he is poorly cooperative, difficult to engage in a conversation, disorganized. The patient says he wants to shoot the town up and kill somebody. When I asked him if he does drugs, drinks alcohol, or smokes tobacco he says "give it to me and I will do it." He reports having hallucinations and states I am "seeing you." Says he is tried shooting himself in the head and missed. PPHx:past psychiatric history of schizoaffective disorder, anxiety disorder, multiple previous psychiatric admissions, denies previous suicide attempts, he was just discharged a week weeks ago from [facility], and about a month and a half ago from psychiatry in [place], where he was under the care of Dr. Loco, documentation review, with a past medical history significant for hypertension, the patient is on Trilafon 4 mg twice daily, Invega Sustenna Sustenna, 234 mg apply 03/16/2018, Depakote 500 mg twice daily, outpatient care with [facility], he plans to the fact team, Past medical history: Hypertension Allergies: Clozapine, ziprasidone, lithium Social history: Domiciled an assisted living facility for the past 5 years ago at [facility], states he is no children. Family psychiatric history: Denies - Inpatient Certification I certify that the inpatient services were ordered in accordance with Medicare regulations governing the order. This includes certification that hospital inpatient services are reasonable and necessary and in the case of services not specified as inpatient-only under 42 CFR 419.22(n), that they are appropriately provided as inpatient services in accordance to with the 2-midnight benchmark under 43 CFR 412.3(e) I certify that inpatient psychiatric hospital services are medically necessary. Evaluation and treatment and/or diagnostic testing are expected to improve the patient's condition. The patient needs on a daily basis, active treatment furnished directly by or requiring the supervision of inpatient psychiatric facility personnel. Estimated Total Length of Stay (Days): 7 Plans for Post Hospital Care: [facility] Review of Systems All other systems reviewed negative except as stated in HPI Psychiatric: Reports paranoia, Reports thoughts of hurting/killing others, Reports thoughts of hurting/killing yourself PMFSH - History History Provided By: Patient, Medical Record - Medical History Medical History: Medical History (Last Reviewed 03/24/18 @ 18:02 by NATI Garcia) Acute exacerbation of chronic schizophrenia Anemia GERD (gastroesophageal reflux disease) HLD (hyperlipidemia) HTN (hypertension) - Surgical History Surgical History: Surgical History (Last Reviewed 03/24/18 @ 17:03 by Zoraida Tapia) No history of previous surgery - Family History Family History: Family History (Last Reviewed 02/09/18 @ 13:38 by NATI Khan) Other Family history normal - Tobacco History Second Hand Smoke Exposure: No Tobacco Use In Past 30 Days: Yes Smoking Status: Heavy tobacco smoker Tobacco Type: Cigarettes - Alcohol History How Often Do You Have a Drink Containing Alcohol: Never - Substance Use History Substance History: No History of Abuse - Travel History Recent Travel in the [place] Within the Last 8 Weeks: No Recent Travel Out of the Country Within the Last 8 Weeks: No - Immunization History Tetanus Immunization: Unsure Medications and Allergies Active Medications: Active Medications Al Hydrox/Mg Hydrox/Simethicone (Mag-Al Plus Susp Liq) 30 ml PO Q6H PRN PRN Reason: DYSPEPSIA Al Hydroxide/Mg Hydroxide (Milk Of Magnesia Liq) 30 ml PO Q12H PRN PRN Reason: Mild Constipation Amoxicillin/Clavulanate Potassium (Augmentin 500/125 Mg) 1 tab PO TID [facility] Bisacodyl (Dulcolax Supp) 10 mg RECTAL DAILY PRN PRN Reason: SEVERE CONSITIPATION Divalproex Sodium (Depakote Er) 500 mg PO BID [facility] Last Admin: 03/25/18 11:55 Dose: 500 mg Lactulose (Lactulose Liq) 30 ml PO DAILY PRN PRN Reason: SEVERE CONSITIPATION Perphenazine (Trilafon) 4 mg PO BID [facility] Senna/Docusate Sodium (Jenni-Colace) 1 tab PO BID [facility] Sennosides (Senokot) 17.2 mg PO Q12H PRN PRN Reason: Moderate Constipation Zolpidem Tartrate (Ambien) 10 mg PO [facility] Allergies Allergy/AdvReac Type Severity Reaction Status Date / Time clozapine Allergy Severe Irritation Verified 03/24/18 16:59 ziprasidone Allergy Severe Rash Verified 03/24/18 16:59 lithium Allergy Rash Verified 03/24/18 16:59 *MDRO Multi-Drug Resistant AdvReac Unknown Anxiety Uncoded 03/24/18 16:59 Organism Home Medications Medication Instructions Recorded Confirmed Type metoprolol tartrate 100 mg PO BID 01/13/18 03/24/18 History omeprazole 20 mg PO DAILY 01/13/18 03/24/18 History potassium 10 meq PO DAILY 01/13/18 03/24/18 History Invega Sustenna 234 mg IM QMONTH 02/27/18 03/24/18 History fenofibrate nanocrystallized 145 mg PO DAILY 02/27/18 03/24/18 History loratadine 10 mg PO DAILY 02/27/18 03/24/18 History naproxen 500 mg PO BID 02/27/18 03/24/18 History perphenazine 4 mg PO BID 02/27/18 03/24/18 History zolpidem 10 mg PO HS 02/27/18 03/24/18 History amoxicillin-pot clavulanate 1 mg PO TID 03/24/18 History [Augmentin] divalproex 500 mg PO BID 03/24/18 03/24/18 History Results - Labs CBC & Chem 7: 03/24/18 17:13 03/24/18 17:13 Labs: Laboratory Results - last 24 hr 03/24/18 03/24/18 03/24/18 17:13 17:13 17:13 WBC 10.3 RBC 4.24 L Hgb 12.4 L Hct 36.4 L MCV 85.9 MCH 29.2 MCHC 34.0 RDW 14.8 Plt Count 269 MPV 8.0 Neut % (Auto) 73.4 H Lymph % (Auto) 17.6 Kimble % (Auto) 6.6 Eos % (Auto) 1.9 Baso % (Auto) 0.5 Neut # (Auto) 7.6 Lymph # (Auto) 1.8 Kimble # (Auto) 0.7 Eos # (Auto) 0.2 Baso # (Auto) 0.0 WBC Differential . Differential Comment Auto diff final Sodium 139 Potassium 4.2 Chloride 105 Carbon Dioxide 25.4 Anion Gap 9 BUN 18 Creatinine 1.10 Estimated GFR 74 L Random Glucose 94 Calcium 8.9 Magnesium 2.2 Total Bilirubin 0.4 AST 24 ALT 49 Alkaline Phosphatase 70 Total Protein 7.8 Albumin 4.0 TSH 1.740 Urine Color Urine Clarity Urine pH Ur Specific [place] Urine Protein Urine Glucose (UA) Urine Ketones Urine Occult Blood Urine Nitrate Urine Bilirubin Urine Urobilinogen Ur Leukocyte Esterase Urine RBC Urine WBC Ur Squamous Epith Cells Micro UA Comment Ur Microscopic Review Urine Culture Comments Salicylates 2.0 L Urine Opiates Screen Acetaminophen Less than 2.0 L Ur Barbiturates Screen Valproic Acid Ur Amphetamines Screen U Benzodiazepines Scrn Urine Cocaine Screen U Cannabinoids Screen Serum Alcohol Less than 3 03/24/18 03/24/18 03/24/18 17:13 22:00 22:00 WBC RBC Hgb Hct MCV MCH MCHC RDW Plt Count MPV Neut % (Auto) Lymph % (Auto) Kimble % (Auto) Eos % (Auto) Baso % (Auto) Neut # (Auto) Lymph # (Auto) Kimble # (Auto) Eos # (Auto) Baso # (Auto) WBC Differential Differential Comment Sodium Potassium Chloride Carbon Dioxide Anion Gap BUN Creatinine Estimated GFR Random Glucose Calcium Magnesium Total Bilirubin AST ALT Alkaline Phosphatase Total Protein Albumin TSH Urine Color Straw Urine Clarity Clear Urine pH 7.0 Ur Specific [place] 1.004 Urine Protein Negative Urine Glucose (UA) Negative Urine Ketones Negative Urine Occult Blood Negative Urine Nitrate Negative Urine Bilirubin Negative Urine Urobilinogen Less than 2 Ur Leukocyte Esterase Negative Urine RBC Less than 1 Urine WBC 3 Ur Squamous Epith Cells <1 Micro UA Comment Culture not ind Ur Microscopic Review Not Reportable Urine Culture Comments Culture not ind Salicylates Urine Opiates Screen Neg Acetaminophen Ur Barbiturates Screen Neg Valproic Acid 29 L Ur Amphetamines Screen Neg U Benzodiazepines Scrn Neg Urine Cocaine Screen Neg U Cannabinoids Screen Neg Serum Alcohol Exam Vital signs: Vital Signs 03/24/18 17:03 03/24/18 18:31 03/24/18 23:33 Temperature 98.3 F 98.6 F Pulse Rate 75 75 68 Respiratory Rate 18 18 16 Blood Pressure 158/72 H 159/86 H 129/64 Pulse Oximetry 96 98 95 03/25/18 06:25 03/25/18 11:23 Temperature 98.9 F Pulse Rate 84 89 Respiratory Rate 16 18 Blood Pressure 139/70 131/78 Pulse Oximetry 94 L Intake & Output 03/24/18 03/25/18 03/25/18 18:59 06:59 18:59 Weight 115.212 kg 111.5 kg Other: Weight On Admission 111.5 kg Narrative: No psychomotor agitation or retardation, no EPS, no withdrawal symptoms, no tremors, no gait disturbance, no catatonia - Constitutional mild distress - Routine HEENT Exam Head: Present: normocephalic, atraumatic Eye: Present: EOMI, PERRL ENT: Present: mucous membranes moist Mental Status Examination Appearance: Dirty, Disheveled Consciousness: Alert Orientation: x4 Motor Activity: Normal gait Speech: Unremarkable Language: Adequate Fund of Knowledge: Adequate Attention and Concentration: Adequate Memory: Unremarkable Mood: Oppositional Affect: Labile, Blunt Thought Process & Associations: Disorganized Thought Content: Bizarre thinking Hallucination Type: Auditory Delusion Type: Bizarre, Paranoid Suicidal Ideation: Yes Suicidal Plan: No Suicidal Intention: No Homicidal Ideation: Yes Homicidal Plan: No Homicidal Intention: No Insight: Poor Judgment: Poor Assessment and Plan - Assessment (1) Schizophrenia Code(s): F20.9 - Schizophrenia, unspecified Status: Acute - Plan Plan: On psychiatric evaluation today the patient presents disorganized, with aggressive behavior, poorly cooperative, internally preoccupied, paranoid, also endorsing hearing voices telling him to kill himself and kill others. As per fact team the patient has been acting like this in the last days, not taking his medications, and for this reason, the patient needs psychiatric admission for stabilization and safety. The patient has a psychiatric history of schizophrenia, multiple psychiatric hospitalizations, he was just discharged from [facility] about a week ago. He is on Depakote 500 mg twice daily, Invega Sustenna 234 last dose March 16, 2018, Trilafon 4 mg twice daily. His Depakote level is 29 at the moment. I will restart his Depakote 500 mg, Trilafon 4 mg twice daily, Benadryl 25 mg for EPS. Patient will be transferred to 2700 unit. Will consult psychiatry for second opinion. Support, motivational psych education provided. Justification for Continued Inpatient Stay: Continue admission
[2018-03-25] MEDS: Amoxicillin/Clavulanate 500/125 MG Tablet PO SCH ×2 (15:47→21:50)
[2018-03-25] MEDS: Senna/Docusate Sodium 8.6/50 MG Tablet PO SCH (21:43)
[2018-03-26] MEDS: Divalproex 500 MG ER Tablet PO SCH ×2 (09:25→20:22)
[2018-03-26] MEDS: Amoxicillin/Clavulanate 500/125 MG Tablet PO SCH ×3 (09:25→17:27)
[2018-03-26] MEDS: Senna/Docusate Sodium 8.6/50 MG Tablet PO SCH ×2 (09:25→20:22)
[2018-03-26 09:30] LABS: Carbon Dioxide 27.3 meq/L (21.0-32.0)
[2018-03-26 09:33] LABS: Chol/HDL Ratio 5.03 Ratio; HDL Cholesterol 32.4 mg/dL (40.0-60.0)
[2018-03-26 13:37] LABS: Hemoglobin A1c 5.1 % (4.3-6.0)
[2018-03-26] MEDS: Acetaminophen 500 MG Tablet PO PRN (15:44)
--- NOTE | 2018-03-26 16:38 | P.PNPSY ---
Subjective Remarks: This is a request for second opinion. Admission note was reviewed and I agree with the history. Patient was seen and case was discussed with nursing. Patient is psychotic and responding to internal stimuli. Thought process is very loose. Insight is poor. He is complaining of anxiety throughout the day. Mental Status Examination Appearance: Dirty, Disheveled Consciousness: Alert Orientation: x4 Motor Activity: Normal gait Speech: Unremarkable Language: Adequate Fund of Knowledge: Adequate Attention and Concentration: Adequate Memory: Unremarkable Mood: Oppositional Affect: Labile, Blunt, Anxious Thought Process & Associations: Disorganized Thought Content: Bizarre thinking Hallucination Type: Auditory Delusion Type: Bizarre, Paranoid Suicidal Ideation: Yes Suicidal Plan: No Suicidal Intention: No Homicidal Ideation: Yes Homicidal Plan: No Homicidal Intention: No Insight: Poor Judgment: Poor Assessment and Plan - Assessment (1) Schizophrenia Code(s): F20.9 - Schizophrenia, unspecified Status: Acute - Plan Plan: I agree with the first opinion to continue petition. Criteria include acute psychosis. Start Atarax 50 mg p.o. every 6 hours as needed anxiety Justification for Continued Inpatient Stay: would decompensate in a less restrictive setting
[2018-03-27] MEDS: Senna/Docusate Sodium 8.6/50 MG Tablet PO SCH ×2 (08:20→20:58)
[2018-03-27] MEDS: Amoxicillin/Clavulanate 500/125 MG Tablet PO SCH ×3 (08:20→17:24)
[2018-03-27] MEDS: Divalproex 500 MG ER Tablet PO SCH ×2 (08:20→20:59)
[2018-03-27] MEDS: Acetaminophen 500 MG Tablet PO PRN ×2 (10:11→17:24)
--- NOTE | 2018-03-27 14:16 | P.PNPSY ---
Subjective Remarks: Reviewed electronic medical records and discussed case with staff. Follow-up was conducted in the day room. Patient is pleasant and cooperative. Denies AVH. Denies SI/HI. Patient is sleeping and eating well. States that he lives at [facility] but does not think they like him. He does want to return to this [facility]. He states, " I am working on trying to be a better person." He has a long hx with [facility] and the FACT team. Review of Systems All other systems reviewed negative except as stated in HPI Mental Status Examination Appearance: Dirty, Disheveled Consciousness: Alert Orientation: x4 Motor Activity: Normal gait Speech: Unremarkable Language: Adequate Fund of Knowledge: Adequate Attention and Concentration: Adequate Memory: Unremarkable Mood: Oppositional Affect: Labile, Blunt, Anxious Thought Process & Associations: Disorganized Thought Content: Bizarre thinking Hallucination Type: Auditory Delusion Type: Bizarre, Paranoid Suicidal Ideation: No Suicidal Plan: No Suicidal Intention: No Homicidal Ideation: No Homicidal Plan: No Homicidal Intention: No Insight: Poor Judgment: Poor Assessment and Plan - Assessment (1) Schizophrenia Code(s): F20.9 - Schizophrenia, unspecified Status: Acute - Plan Plan: Continue current treatment plan. Justification for Continued Inpatient Stay: Moving patient to a less restrictive environment may result in his decompensation.
[2018-03-28] MEDS: Divalproex 500 MG ER Tablet PO SCH ×2 (08:30→20:27)
[2018-03-28] MEDS: Amoxicillin/Clavulanate 500/125 MG Tablet PO SCH ×3 (08:30→17:15)
[2018-03-28] MEDS: Senna/Docusate Sodium 8.6/50 MG Tablet PO SCH ×2 (08:30→20:27)
--- NOTE | 2018-03-28 14:21 | P.PNPSY ---
Subjective Remarks: Reviewed electronic medical records and discussed case with staff. Follow-up was conducted in the hallway with KARLENE Wilkerson present. The patient states that he is good and that he has been "meditating". He is does admit to having trouble focusing. When asked if he is hearing voices he states "I want to hear more better voices". Speech remains rapid, pressured, and tangential as well as disorganized at times. Mental Status Examination Appearance: Dirty, Disheveled Consciousness: Alert Orientation: x4 Motor Activity: Normal gait Speech: Unremarkable Language: Adequate Fund of Knowledge: Adequate Attention and Concentration: Adequate Memory: Unremarkable Mood: Oppositional Affect: Labile, Blunt, Anxious Thought Process & Associations: Disorganized Thought Content: Bizarre thinking Hallucination Type: Auditory Delusion Type: Bizarre, Paranoid Suicidal Ideation: No Suicidal Plan: No Suicidal Intention: No Homicidal Ideation: No Homicidal Plan: No Homicidal Intention: No Insight: Poor Judgment: Poor Assessment and Plan - Assessment (1) Schizophrenia Code(s): F20.9 - Schizophrenia, unspecified Status: Acute - Plan Plan: Patient will be reevaluated by the attending psychiatrist. Continue with current treatment plan. Justification for Continued Inpatient Stay: Moving this patient to a less restrictive environment would likely result in decompensation.
[2018-03-29] MEDS: Divalproex 500 MG ER Tablet PO SCH ×2 (08:32→20:05)
[2018-03-29] MEDS: Senna/Docusate Sodium 8.6/50 MG Tablet PO SCH ×2 (08:32→20:05)
[2018-03-29] MEDS: Amoxicillin/Clavulanate 500/125 MG Tablet PO SCH ×3 (08:32→17:13)
--- NOTE | 2018-03-29 14:12 | P.PNPSY ---
Subjective Remarks: Reviewed electronic medical record and discussed case with staff. Follow up was conducted in the hallway. Patient reports that he is eating and sleeping well. He claims to not be experiencing auditory hallucinations today, however his behavior is still somewhat suspect for internal stimulation. He is a bit more communicative today. Mental Status Examination Appearance: Dirty, Disheveled Consciousness: Alert Orientation: x4 Motor Activity: Normal gait Speech: Unremarkable Language: Adequate Fund of Knowledge: Adequate Attention and Concentration: Adequate Memory: Unremarkable Mood: Oppositional Affect: Labile, Blunt, Anxious Thought Process & Associations: Disorganized Thought Content: Bizarre thinking Hallucination Type: Auditory Delusion Type: Bizarre, Paranoid Suicidal Ideation: No Suicidal Plan: No Suicidal Intention: No Homicidal Ideation: No Homicidal Plan: No Homicidal Intention: No Insight: Poor Judgment: Poor Assessment and Plan - Assessment (1) Schizophrenia Code(s): F20.9 - Schizophrenia, unspecified Status: Acute - Plan Plan: Patient will be reassessed by the attending psychiatrist. Although he is showing some improvement, I am not sure that he is at his baseline, and given his frequent readmissions, State may be a viable option. Justification for Continued Inpatient Stay: Moving this patient to a less restrictive environment would very likely result in a decompensation.
[2018-03-30 05:52] VITALS: BP 99/55; PULSE 88; RESP 20; TEMP 97.1; O2SAT 99
[2018-03-30] MEDS: Amoxicillin/Clavulanate 500/125 MG Tablet PO SCH ×2 (08:21→12:32)
[2018-03-30] MEDS: Divalproex 500 MG ER Tablet PO SCH (08:22)
[2018-03-30] MEDS: Senna/Docusate Sodium 8.6/50 MG Tablet PO SCH (08:22)
--- NOTE | 2018-03-30 12:09 | P.DSPSY ---
Psychiatry Discharge Summary Inpatient Psychiatric care?: Yes Advance Directives: No Mental Health Advance Directive: Yes Health Care Proxy: Yes - Admission Admission Date: March 25, 2018 09:56 - Admission Diagnosis (1) Schizophrenia Code(s): F20.9 - Schizophrenia, unspecified Brief History: Patient is a 42-year-old man, domiciled an assisted living facility, single, no children, well known by the department, with a past psychiatric history of schizoaffective disorder, anxiety disorder, multiple previous psychiatric admissions, denies previous suicide attempts, he was just discharged a week weeks ago from [facility], and about a month and a half ago from psychiatry in [place], where he was under the care of Dr. Loco, documentation review, with a past medical history significant for hypertension, the patient is on Trilafon 4 mg twice daily, Invega Sustenna Sustenna, 234 mg apply 2017, Depakote 500 mg twice daily, outpatient care with [facility], he also to the fact team, who presents to the ED for evaluation as a BA from [facility] under Alcocer act. According to the Alcocer act report the patient lives in assisted living and was telling the caregiver he was going to get a gun and kill multiple people and then himself As per FACT TEAM collateral information the patient has been defecated in the floor, very disorganized, and probably not taking his medications since his valproic acid level is subtherapeutic. Right now is 29. He also made a statement that he was going to lay in front of a train and there was train tracks nearby where the patient lives. Also states his hearing voices. Patient has uncooperative during HPI. He is not answering questions appropriately and he is laughing continuously and inappropriately when he answers questions inappropriately. On psychiatric examination he is poorly cooperative, difficult to engage in a conversation, disorganized. The patient says he wants to shoot the town up and kill somebody. When I asked him if he does drugs, drinks alcohol, or smokes tobacco he says "give it to me and I will do it." He reports having hallucinations and states I am "seeing you." Says he is tried shooting himself in the head and missed. PPHx:past psychiatric history of schizoaffective disorder, anxiety disorder, multiple previous psychiatric admissions, denies previous suicide attempts, he was just discharged a week weeks ago from [facility], and about a month and a half ago from psychiatry in [place], where he was under the care of Dr. Loco, documentation review, with a past medical history significant for hypertension, the patient is on Trilafon 4 mg twice daily, Invega Sustenna Sustenna, 234 mg apply 03/16/2018, Depakote 500 mg twice daily, outpatient care with [facility], he plans to the fact team, Past medical history: Hypertension Allergies: Clozapine, ziprasidone, lithium Social history: Domiciled an assisted living facility for the past 5 years ago at [facility], states he is no children. Family psychiatric history: Denies Tobacco Use In Past 30 Days: Yes How Often Do You Have a Drink Containing Alcohol: Never Hospital Course: The patient was admitted to the inpatient psychiatry for further evaluation and management of aggressive behavior and psychotic symptoms. Patient was restarted on medication regimen to target mood and psychotic symptoms which he tolerated well with no notable adverse drug reactions. He was observed by staff not to have had any behavioral disturbances, denied any suicidal ideation and denied any homicidal ideations. Patient was able to reach and maintain stable mood with no longer endorsing perceptual disturbances and noted with improved organized thought process during admission and was noted to participate with staff adequately and in groups and activities. Patient was noted to participate in self-care, engaged with staff and maintaining adequate hygiene. Patient reported feeling good, future oriented and motivated to engage in continued outpatient treatment and return back to his assisted living facility. Treatment team was able to set up outpatient follow-up appointments and get patient reconnected to the FACT team which patient can continue for continuity of care. Upon discharge patient stated feeling "good" reported feeling well with treatment, agreed to continue treatment. Patient from a mental health perspective no longer met criteria for continued inpatient level of care. Patient denied any SI, HI, perceptual disturbances or delusions. Weighing the acute, chronic, and protective factors and based on the available evidence, I judge's clerk to a reasonable degree of medical certainty that the patient is at low imminent risk of harm to self or others for mental illness as defined under the Alcocer act and her level of function is adequate as observed on the unit for planned level of outpatient care. Patient was counseled regarding warning signs for need to return to the psychiatric emergency room as part of the general safety plan. Patient advised to call 911 or go to nearest ED in case of emergency. Patient agrees with plan. - Discharge Discharge Date: 03/30/18 - Discharge Diagnosis (1) Schizophrenia Code(s): F20.9 - Schizophrenia, unspecified Status: Acute (2) Schizophrenia Code(s): F20.9 - Schizophrenia, unspecified Status: Acute Discharge Disposition: Acute Care Facility - Discharge Time > 30 minutes Mental Status Examination Appearance: Dirty, Disheveled Consciousness: Alert Orientation: x4 Motor Activity: Normal gait Speech: Unremarkable Language: Adequate Fund of Knowledge: Adequate Attention and Concentration: Adequate Memory: Unremarkable Mood: Appropriate Affect: Labile, Blunt, Anxious Thought Process & Associations: Disorganized Thought Content: Bizarre thinking Hallucination Type: None Delusion Type: Bizarre Suicidal Ideation: No Suicidal Plan: No Suicidal Intention: No Homicidal Ideation: No Homicidal Plan: No Homicidal Intention: No Insight: Poor Judgment: Impulsive Discharge/Advance Care Plan - Results Vital Signs: Last Vital Signs Temp 97.1 F L 03/30/18 05:52 Pulse 88 03/30/18 05:52 Resp 20 03/30/18 05:52 BP 99/55 L 03/30/18 05:52 Pulse Ox 99 03/30/18 05:52 Lab Results: Laboratory Results Hemoglobin A1c 5.1 % (4.3-6.0) 03/26/18 07:42 Triglycerides 268 mg/dL (42-150) H 03/26/18 07:42 Cholesterol 163 mg/dL (120-200) 03/26/18 07:42 LDL Cholesterol, Calc 77 mg/dL (0-99) 03/26/18 07:42 HDL Cholesterol 32.4 mg/dL (40.0-60.0) L 03/26/18 07:42 TSH 1.740 uIU/mL (0.358-3.740) 03/24/18 17:13 Urine Culture Comments Culture not ind 03/24/18 22:00 Valproic Acid 29 mcg/mL (50-100) L 03/24/18 17:13 Summary of Procedures: None Pending Results: None - Medications Number of antipsychotic medications at discharge: 1 - Discharge Care Plan Goals to Promote Your Health: * To prevent worsening of your condition and complications * To maintain your health at the optimal level Directions to Meet Your Goals: Take your medications as prescribed Follow your dietary instruction Follow activity as directed Keep your appointments as scheduled Take your immunizations and boosters as scheduled If your symptoms worsen call your PCP, if no PCP go to Urgent Care Center or Emergency Room For 14/12 questions related to your inpatient stay or results of tests pending at discharge, please contact Dr. Timi Martin MD at Smoking is Dangerous to Your Health. Avoid second hand smoking
== END 2018-03-30 15:45 ==
LOC: NEPJ 16:43 → NEDA 03-25 09:56 → H270 03-25 10:41
PROVIDERS: ADMIT Psychiatry & Neurology Psychiatry; ATTEND Psychiatry & Neurology Psychiatry